=== PATIENT | female | born 1995 | race Caucasian/White ===

== ENCOUNTER 2020-12-17 14:29 | Outpatient (REF) | payer MEDICARE, MEDICAID, SELFPAY ==
[2020-12-17 16:08] LABS: Free T4 (Free Thyroxine) 0.71 ng/dL (0.71-1.85); Thyroid Stimulating Hormone 4.79 uIU/mL (0.32-4.0)
[2020-12-18 06:51] LABS: Triiodothyronine T3 Total 77 ng/dL (76-181)
== END 2020-12-17 14:30 | disposition home or self-care (01) ==
LOC: HO.LAB 14:29
PROVIDERS: PCP Student in an Organized Health Care Education/Training Program; Visit Provider Internal Medicine Endocrinology, Diabetes & Metabolism
DX: E05.90 Thyrotoxicosis, unspecified without thyrotoxic crisis or storm (principal)
CPT/HCPCS: 36415; 84439; 84443; 84480

== ENCOUNTER 2021-01-26 15:04 | Outpatient (REF) | payer MEDICARE, MEDICAID, SELFPAY ==
[2021-01-26 17:30] LABS: MANUAL DIFF FLAG NO
[2021-01-26 17:40] LABS: Basophils Absolute Auto 0.1 X10*3/uL (0.0-0.2); Basophils Percent Auto 1.1 % (0-2); Eosinophils Absolute Auto 0.1 X10*3/uL (0.0-0.4); Eosinophils Percent Auto 1.1 % (0-4); Hematocrit 38.4 % (37-47); Hemoglobin 13.2 g/dl (12.0-16.0); Imm Gran Abs Auto 0.02 X10*3/uL (0.00-0.03); Imm Gran Pct Auto 0.4 % (0.0-0.4); Lymphocytes Absolute Auto 1.6 X10*3/uL (1.2-4.9); Lymphocytes Percent Auto 29.5 % (20-40); Mean Corpuscular HGB Conc 34.4 g/dl (31.0-35.0); Mean Corpuscular Hemoglobin 34.5 pg (27.0-33.0); Mean Corpuscular Volume 100.3 fL (80-98); Mean Platelet Volume 10.1 fL (9.4-12.3); Monocytes Absolute Auto 0.2 X10*3/uL (0.1-1.2); Monocytes Percent Auto 4.3 % (2-11); Neutrophils Absolute Auto 3.4 X10*3/uL (2.0-8.3); Neutrophils Percent Auto 63.6 % (45-73); Platelet Count 236 X10*3/uL (160-400); Red Blood Count 3.83 X10*6/uL (4.20-5.50); Red Cell Distribution Width 12.3 % (11.0-16.0); White Blood Count 5.4 X10*3/uL (4.8-10.8)
[2021-01-26 18:05] LABS: Alanine Aminotransferase 15 U/L (0-31); Albumin Level 4.2 g/dL (3.5-5.0); Alkaline Phosphatase 57 U/L (39-117); Aspartate Amino Transferase 18 U/L (5-31); Bilirubin Direct 0.2 mg/dL (0.0-0.5); Bilirubin Total 0.4 mg/dL (0.0-1.0); Total Protein 7.1 g/dL (6.5-8.0)
[2021-01-26 18:26] LABS: Free T4 (Free Thyroxine) 0.88 ng/dL (0.71-1.85); Thyroid Stimulating Hormone 2.98 uIU/mL (0.32-4.0)
[2021-01-27 07:56] LABS: Triiodothyronine T3 Total 76 ng/dL (76-181)
[2021-01-29 21:01] LABS: Thyrotropin Receptor Antibody 8.85 IU/L (<=2.00)
[2021-01-31 15:02] LABS: Thyroid Stimulating Immunoglob 553 % baseline (<140)
== END 2021-01-26 15:05 | disposition home or self-care (01) ==
LOC: HO.LAB 15:04
PROVIDERS: PCP Student in an Organized Health Care Education/Training Program; Visit Provider Internal Medicine Endocrinology, Diabetes & Metabolism
DX: E05.00 Thyrotoxicosis with diffuse goiter without thyrotoxic crisis or storm (principal); E06.3 Autoimmune thyroiditis; Z79.899 Other long term (current) drug therapy
CPT/HCPCS: 36415; 80076; 83520; 84439; 84443; 84445; 84480; 85025; 99212

== ENCOUNTER 2021-05-06 14:36 | Outpatient (REF) | payer MEDICARE, MEDICAID, SELFPAY ==
[2021-05-06 16:37] LABS: Free T4 (Free Thyroxine) 0.87 ng/dL (0.71-1.85); Thyroid Stimulating Hormone 6.51 uIU/mL (0.32-4.0)
[2021-05-08 03:05] LABS: Triiodothyronine T3 Total 88 ng/dL (76-181)
== END 2021-05-06 14:37 | disposition home or self-care (01) ==
LOC: HO.LAB 14:36
PROVIDERS: PCP Student in an Organized Health Care Education/Training Program; Visit Provider Internal Medicine
DX: E05.00 Thyrotoxicosis with diffuse goiter without thyrotoxic crisis or storm (principal)
CPT/HCPCS: 36415; 84439; 84443; 84480; 99212

== ENCOUNTER 2021-05-17 14:34 | Outpatient (REF) | payer MEDICARE, MEDICAID, SELFPAY ==
--- NOTE | ~2021-05-17 | US_ITS ---
EXAMINATION: US THYROID CLINICAL INFORMATION: Thyrotoxicosis with diffuse goiter COMPARISON: None TECHNIQUE: Linear transducer grayscale and color Doppler examination with attention to the region of the thyroid. FINDINGS: SIZE: Measurements of the thyroid lobes and nodules are given in sagittal, anteroposterior and transverse dimensions respectively. Right Thyroid Lobe: 3.95 x 1.60 x 1.56 cm, volume 5.19 mL. Parenchyma: The gland echotexture is homogeneous. Thyroid vascularity is increased. Left Thyroid Lobe: 3.40 x 1.59 x 1.44 cm, volume 4.09 mL. Parenchyma: The gland echotexture is homogeneous. Thyroid vascularity is increased. Isthmus: 0.33 cm in maximum AP dimension. Estimated total number of nodules greater than or equal to 1 cm: 0. Pattern Finisher nodules are described as follows: NODES: No lymphadenopathy is seen in the tissue surrounding the thyroid gland. US/US thyroid IMPRESSION: Hypervascular normal-size thyroid gland. No nodule seen.
== END 2021-05-17 14:35 | disposition home or self-care (01) ==
LOC: HO.HMGCX 14:34
PROVIDERS: PCP Student in an Organized Health Care Education/Training Program; Visit Provider Internal Medicine
DX: E05.00 Thyrotoxicosis with diffuse goiter without thyrotoxic crisis or storm (principal)
CPT/HCPCS: 76536

== ENCOUNTER 2021-06-01 09:28 | Outpatient (REF) | payer MEDICARE, MEDICAID, SELFPAY ==
[2021-06-01 10:40] LABS: Thyroid Stimulating Hormone 7.13 uIU/mL (0.32-4.0)
[2021-06-03 03:32] LABS: Triiodothyronine T3 Total 104 ng/dL (76-181)
[2021-06-04 16:02] LABS: Thyroid Stimulating Immunoglob 380 % baseline (<140)
== END 2021-06-01 09:29 | disposition home or self-care (01) ==
LOC: HO.LAB 09:28
PROVIDERS: Absent Provider Internal Medicine; PCP Student in an Organized Health Care Education/Training Program; Visit Provider Nurse Practitioner Gerontology
DX: E05.00 Thyrotoxicosis with diffuse goiter without thyrotoxic crisis or storm (principal)
CPT/HCPCS: 36415; 84439; 84443; 84445; 84480

== ENCOUNTER 2021-06-07 16:17 | Outpatient (REF) | payer MEDICARE, MEDICAID, SELFPAY ==
[2021-06-07 16:54] LABS: Hematocrit 37.2 % (37-47); Hemoglobin 13.1 g/dl (12.0-16.0); Mean Corpuscular HGB Conc 35.2 g/dl (31.0-35.0); Mean Corpuscular Hemoglobin 34.7 pg (27.0-33.0); Mean Corpuscular Volume 98.7 fL (80-98); Mean Platelet Volume 10.1 fL (9.4-12.3); Platelet Count 222 X10*3/uL (160-400); Red Blood Count 3.77 X10*6/uL (4.20-5.50); Red Cell Distribution Width 12.2 % (11.0-16.0); White Blood Count 5.4 X10*3/uL (4.8-10.8)
[2021-06-07 18:05] LABS: Folate 15.2 ng/mL (> or = 4.0); Vitamin B12 388 pg/mL (200-900)
[2021-06-15 15:47] LABS: Transglutaminase Ab IgG <1.0 U/mL
== END 2021-06-07 16:18 | disposition home or self-care (01) ==
LOC: HO.LAB 16:17
PROVIDERS: Visit Provider Family Medicine
DX: D75.89 Other specified diseases of blood and blood-forming organs (principal); Q90.9 Down syndrome, unspecified
CPT/HCPCS: 36415; 82607; 82746; 83516; 85027

== ENCOUNTER 2021-07-16 08:59 | Outpatient (REF) | payer MEDICARE, MEDICAID, SELFPAY ==
[2021-07-16 10:56] LABS: Free T4 (Free Thyroxine) 1.04 ng/dL (0.71-1.85)
[2021-07-21 02:17] LABS: Thyroglobulin Antibodies <1 IU/mL (< or = 1); Thyroid Peroxidase Antibodies 235 IU/mL (<9)
[2021-07-24 18:21] LABS: Thyrotropin Receptor Antibody 6.94 IU/L (<=2.00)
[2021-07-27 15:47] LABS: Thyroid Stimulating Immunoglob 347 % baseline (<140)
== END 2021-07-16 09:00 | disposition home or self-care (01) ==
LOC: HO.LAB 08:59
PROVIDERS: PCP Student in an Organized Health Care Education/Training Program; Visit Provider Internal Medicine
DX: E03.9 Hypothyroidism, unspecified (principal)
CPT/HCPCS: 36415; 83520; 84439; 84443; 84445; 86376; 86800

== ENCOUNTER 2021-10-27 09:34 | Outpatient (REF) | payer MEDICARE, MEDICAID, SELFPAY ==
[2021-10-27 11:40] LABS: Free T4 (Free Thyroxine) 1.18 ng/dL (0.71-1.85); Thyroid Stimulating Hormone 1.37 uIU/mL (0.32-4.0)
[2021-10-28 08:02] LABS: Triiodothyronine T3 Total 101 ng/dL (76-181)
== END 2021-10-27 09:35 | disposition home or self-care (01) ==
LOC: HO.LAB 09:34
PROVIDERS: PCP Student in an Organized Health Care Education/Training Program; Visit Provider Internal Medicine
DX: E05.00 Thyrotoxicosis with diffuse goiter without thyrotoxic crisis or storm (principal)
CPT/HCPCS: 36415; 84439; 84443; 84480

== ENCOUNTER → 2021-11-08 14:47 | Outpatient (BNVA) | payer MEDICARE, MEDICAID, SELFPAY | PROVIDERS: PCP Student in an Organized Health Care Education/Training Program; Visit Provider Internal Medicine | DX: E03.9 Hypothyroidism, unspecified (principal) | CPT/HCPCS: 99212 ==

== ENCOUNTER 2021-12-20 09:12 | Outpatient (REF) | payer MEDICARE, MEDICAID, SELFPAY ==
[2021-12-20 09:48] LABS: Hematocrit 38.6 % (37.0-47.0); Hemoglobin 13.5 g/dl (12.0-16.0); Mean Corpuscular Hemoglobin 33.6 pg (27.0-33.0); Mean Platelet Volume 10.1 fL (9.4-12.3); Platelet Count 316 X10*3/uL (160-400); Red Blood Count 4.02 X10*6/uL (4.20-5.50); Red Cell Distribution Width 11.9 % (11.0-16.0); White Blood Count 7.9 X10*3/uL (4.8-10.8)
[2021-12-20 10:10] LABS: Alanine Aminotransferase 10 U/L (0-31); Albumin Level 3.9 g/dL (3.5-5.0); Alkaline Phosphatase 64 U/L (39-117); Aspartate Amino Transferase 18 U/L (5-31); Bilirubin Direct 0.3 mg/dL (0.0-0.5); Total Protein 7.3 g/dL (6.5-8.0)
[2021-12-20 10:33] LABS: Free T4 (Free Thyroxine) 1.14 ng/dL (0.71-1.85); Thyroid Stimulating Hormone 1.11 uIU/mL (0.32-4.0)
[2021-12-22 03:51] LABS: Triiodothyronine T3 Free 2.8 pg/mL (2.3-4.2)
== END 2021-12-20 09:13 | disposition home or self-care (01) ==
LOC: HO.LAB 09:12
PROVIDERS: PCP Student in an Organized Health Care Education/Training Program; Visit Provider Internal Medicine Endocrinology, Diabetes & Metabolism
DX: E05.90 Thyrotoxicosis, unspecified without thyrotoxic crisis or storm (principal)
CPT/HCPCS: 36415; 80076; 84439; 84443; 84481; 85027

== ENCOUNTER 2022-02-09 09:49 | Outpatient (REF) | payer MEDICARE, MEDICAID, SELFPAY ==
[2022-02-09 12:01] LABS: Free T4 (Free Thyroxine) 1.15 ng/dL (0.71-1.85); Thyroid Stimulating Hormone 1.99 uIU/mL (0.32-4.0)
== END 2022-02-09 09:50 | disposition home or self-care (01) ==
LOC: HO.LAB 09:49
PROVIDERS: PCP Student in an Organized Health Care Education/Training Program; Visit Provider Internal Medicine
DX: E03.9 Hypothyroidism, unspecified (principal)
CPT/HCPCS: 36415; 84439; 84443

== ENCOUNTER 2022-03-28 09:51 | Outpatient (REF) | payer MEDICARE, MEDICAID, SELFPAY ==
[2022-03-28 11:12] LABS: Thyroid Stimulating Hormone 1.79 uIU/mL (0.32-4.0)
[2022-03-29 23:32] LABS: Triiodothyronine T3 Total 110 ng/dL (76-181)
== END 2022-03-28 09:52 | disposition home or self-care (01) ==
LOC: HO.LAB 09:51
PROVIDERS: Nurse Practitioner Gerontology; PCP Student in an Organized Health Care Education/Training Program; Visit Provider Internal Medicine
DX: E03.9 Hypothyroidism, unspecified (principal); E05.90 Thyrotoxicosis, unspecified without thyrotoxic crisis or storm
CPT/HCPCS: 36415; 84439; 84443; 84480

== ENCOUNTER 2022-05-05 14:34 | Outpatient (REF) | payer MEDICARE, MEDICAID, SELFPAY ==
[2022-05-05 16:36] LABS: Free T4 (Free Thyroxine) 1.15 ng/dL (0.71-1.85); Thyroid Stimulating Hormone 1.62 uIU/mL (0.32-4.0)
== END 2022-05-05 14:35 | disposition home or self-care (01) ==
LOC: HO.LAB 14:34
PROVIDERS: PCP Student in an Organized Health Care Education/Training Program; Visit Provider Internal Medicine
DX: E03.9 Hypothyroidism, unspecified (principal)
CPT/HCPCS: 36415; 84439; 84443

== ENCOUNTER → 2022-05-11 13:47 | Outpatient (BNVA) | payer MEDICARE, MEDICAID, SELFPAY | PROVIDERS: PCP Student in an Organized Health Care Education/Training Program; Visit Provider Internal Medicine | DX: E03.9 Hypothyroidism, unspecified (principal); Z79.899 Other long term (current) drug therapy | CPT/HCPCS: 99212 ==

== ENCOUNTER 2022-11-10 09:56 | Outpatient (REF) | payer MEDICARE, MEDICAID, SELFPAY ==
[2022-11-10 11:30] LABS: Free T4 (Free Thyroxine) 0.98 ng/dL (0.71-1.85); Thyroid Stimulating Hormone 3.62 uIU/mL (0.32-4.0)
== END 2022-11-10 09:57 | disposition home or self-care (01) ==
LOC: HO.LAB 09:56
PROVIDERS: PCP Student in an Organized Health Care Education/Training Program; Visit Provider Internal Medicine
DX: E03.9 Hypothyroidism, unspecified (principal)
CPT/HCPCS: 36415; 84439; 84443

== ENCOUNTER → 2022-11-21 14:03 | Outpatient (BNVA) | payer MEDICARE, MEDICAID, SELFPAY | PROVIDERS: PCP Student in an Organized Health Care Education/Training Program; Visit Provider Internal Medicine | DX: E03.9 Hypothyroidism, unspecified (principal) | CPT/HCPCS: 99212 ==

== ENCOUNTER 2022-12-22 15:31 | Outpatient (REF) | payer MEDICARE, MEDICAID, SELFPAY ==
[2022-12-22 17:52] LABS: Alanine Aminotransferase 16 U/L (0-31); Albumin Level 4.4 g/dL (3.5-5.0); Alkaline Phosphatase 63 U/L (39-117); Anion Gap 14 (12-20); Aspartate Amino Transferase 21 U/L (5-31); Bilirubin Direct 0.2 mg/dL (0.0-0.5); Bilirubin Total 0.5 mg/dL (0.0-1.0); Blood Urea Nitrogen 18 mg/dL (9-16); Calcium 9.3 mg/dL (8.4-10.2); Carbon Dioxide 26 mmol/L (22-29); Chloride 105 mmol/L (96-108); Cholesterol 157 mg/dL; Estimated Glomerular Filt Rate > 60; Glucose Random 77 mg/dL (60-115); HDL Cholesterol 57 mg/dL; Iron 89 mcg/dL (30-160); LDL Cholesterol Calculated 87 mg/dl; Percent Iron Saturation 31 % (15-50); Potassium 4.7 mmol/L (3.3-5.1); Sodium 140 mmol/L (135-145); Total Iron Binding Capacity 286 mcg/dL (228-428); Total Protein 7.6 g/dL (6.5-8.0); Triglycerides 66 mg/dL; Unsaturated Iron Binding 197 ug/dL
[2022-12-22 18:14] LABS: Ferritin 42 ng/mL (10-122); Vitamin B12 388 pg/mL (200-900)
== END 2022-12-22 15:32 | disposition home or self-care (01) ==
LOC: HO.LAB 15:31
PROVIDERS: PCP Student in an Organized Health Care Education/Training Program; Visit Provider Student in an Organized Health Care Education/Training Program
DX: E53.8 Deficiency of other specified B group vitamins (principal); E05.90 Thyrotoxicosis, unspecified without thyrotoxic crisis or storm; D50.9 Iron deficiency anemia, unspecified; Q90.9 Down syndrome, unspecified
CPT/HCPCS: 36415; 80048; 80061; 80076; 82607; 82728; 83540; 84443

== ENCOUNTER 2023-02-20 16:31 | Outpatient (REF) | payer MEDICARE, MEDICAID, SELFPAY ==
[2023-02-20 17:55] LABS: Free T4 (Free Thyroxine) 1.09 ng/dL (0.71-1.85); Thyroid Stimulating Hormone 2.09 uIU/mL (0.32-4.0)
== END 2023-02-20 16:32 | disposition home or self-care (01) ==
LOC: HO.LAB 16:31
PROVIDERS: PCP Student in an Organized Health Care Education/Training Program; Visit Provider Internal Medicine
DX: E03.9 Hypothyroidism, unspecified (principal)
CPT/HCPCS: 36415; 84439; 84443

== ENCOUNTER 2023-04-04 09:28 | Outpatient (REF) | payer MEDICARE, MEDICAID, SELFPAY ==
[2023-04-04 11:40] LABS: Vitamin D 25-OH Total 42.5 ng/mL (>30)
== END 2023-04-04 09:29 | disposition home or self-care (01) ==
LOC: HO.LAB 09:28
PROVIDERS: PCP Student in an Organized Health Care Education/Training Program; Visit Provider Student in an Organized Health Care Education/Training Program
DX: E55.9 Vitamin D deficiency, unspecified (principal)
CPT/HCPCS: 36415; 82306

== ENCOUNTER 2023-05-30 15:07 | Outpatient (AMB) | payer MEDICARE, MEDICAID, SELFPAY ==
--- NOTE | 2023-05-30 15:09 | A.OFFVIS_ITS ---
Intake Vital Signs 05/30/23 15:14 Height 4 ft 4 in Weight 89 lb 11.65 oz BMI 23.3 BP 102/70 Blood Pressure Location Lt brachial Position Sitting Pulse 92 Pulse Source Pulse Oximeter Intake Visit Reasons: F/U Hypothyroidism/ Unable to reach Intake Note: Patient present today for Hypothyroidism office visit. Previously seen by Dr. Aguilera. 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 Allergies bacitracin Allergy (Unknown, Verified 05/30/23 15:16) Unknown penicillin V Allergy (Unknown, Verified 05/30/23 15:16) Unknown Penicillins [PENICILLINS] Allergy (Unknown, Verified 05/30/23 15:16) UNKNOWN Sulfa (Sulfonamide Antibiotics) [SULFA (SULFONAMIDE ANTIBIOTICS)] Allergy (Unknown, Verified 05/30/23 15:16) UNKNOWN sulfacetamide Allergy (Unknown, Verified 05/30/23 15:16) Unknown adhesive Allergy (Unknown, Uncoded 05/30/23 15:16) Unknown Clindamycin HCl Allergy (Unknown, Uncoded 05/30/23 15:16) Unknown Medication List - Last Reconciled 05/30/23 by Naseem Rosas MD betamethasone dipropionate 0.05% 1 appl topical BID fluocinolone and shower cap 0.01 % (Acworth-Smoothe/FS Scalp Oil) ea topical fluticasone propionate 50 mcg/actuation sprays intranasal ketoconazole 2% topical levothyroxine 25 mcg PO DAILY 30 days mupirocin 2% topical nystatin topical tacrolimus 0.1% topical HPI HPI Comments History of Present Illness Details 28 YO Female with a PMHx Lana-Grave's disease who is seen in F/U. Patient last saw Dr. Aguilera on 11/21/2022 History is provided by her photograph tinter today. She has autoimmune thyroid disease with TPO, TRAB and TSI antibodies positive. She was previously hypothyroid on levothyroxine replacement, but subsequently became hyperthyroid. Her levothyroxine was stopped, she remained hyperthyroid, so methimazole 2.5 mg PO daily was started. She then became hypothyroid again. Her methimazole was stopped and she was instead start on levothyroxine 25 mcg PO daily. She remains on this now, with TSH WNL. Thyroid US revealed a hypervascular gland that was WNL in terms of size. No nodules were appreciated. Labs: Laboratory Tests 11/10/22 10:14 TSH 3.62 Free T4 0.98 PFSH Medical History Graves disease Hyperthyroidism Hypothyroidism Surgical History Hx of tonsillectomy Family History Mother No problems noted. Maternal Grandmother Goiter Sister Orlando's disease Social History Housing: Other Housing Other:: Resides at [place] Do you presently have visiting nurse or other home services: Yes (School Nurse Donna [phone] Ext [phone]) Alcohol intake: never Patient Tobacco Use Status: Never used Tobacco Physical Exam Vital Signs: Last Vital Signs Pulse 92 05/30/23 15:14 BP 102/70 05/30/23 15:14 BMI result Body Mass Index 23.3 Const Other: Thyroid gland is normal size weighs about 15 g . There are no thyroid nodules palpated. 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 She appears to be clinically biochemically euthyroid on 25 mcg levothyroxine. Plan is to continue The current management Orders: Orders Free T4 (Free Thyroxine) 11 Months E03.9 - Hypothyroidism, unspecified Thyroid Stimulating Hormone 11 Months E03.9 - Hypothyroidism, unspecified Coding Level of Care Code Est Pt Level 3 (34483) Diagnoses Hypothyroidism E03.9
[2023-05-30 15:14] VITALS: BP 102/70; PULSE 92; BMI 23.3
== END 2023-05-30 15:51 | disposition home or self-care (01) ==
PROVIDERS: PCP Student in an Organized Health Care Education/Training Program; Visit Provider Internal Medicine Endocrinology, Diabetes & Metabolism
DX: E03.9 Hypothyroidism, unspecified (principal)
CPT/HCPCS: 99213

== ENCOUNTER → 2023-05-30 15:07 | Outpatient (BNVA) | payer MEDICARE, MEDICAID, SELFPAY | PROVIDERS: Visit Provider Internal Medicine Endocrinology, Diabetes & Metabolism | DX: E06.3 Autoimmune thyroiditis (principal); E03.8 Other specified hypothyroidism; Z79.899 Other long term (current) drug therapy | CPT/HCPCS: 99212 ==

== ENCOUNTER 2023-08-08 15:49 | Outpatient (REF) | payer MEDICARE, MEDICAID, SELFPAY ==
[2023-08-08 18:09] LABS: MANUAL DIFF FLAG NO
[2023-08-08 18:18] LABS: Basophils Absolute Auto 0.1 X10*3/uL (0.0-0.2); Basophils Percent Auto 1.2 % (0-2); Eosinophils Absolute Auto 0.1 X10*3/uL (0.0-0.4); Eosinophils Percent Auto 0.7 % (0-4); Hematocrit 37.3 % (37.0-47.0); Hemoglobin 12.9 g/dl (12.0-16.0); Imm Gran Abs Auto 0.02 X10*3/uL (0.00-0.03); Imm Gran Pct Auto 0.3 % (0.0-0.4); Lymphocytes Absolute Auto 1.6 X10*3/uL (1.2-4.9); Lymphocytes Percent Auto 21.1 % (20-40); Mean Corpuscular HGB Conc 34.6 g/dl (31.0-35.0); Mean Corpuscular Volume 98.4 fL (80.0-98.0); Mean Platelet Volume 10.8 fL (9.4-12.3); Monocytes Absolute Auto 0.3 X10*3/uL (0.1-1.2); Neutrophils Absolute Auto 5.6 x10*3/uL (2.0-8.3); Neutrophils Percent Auto 72.7 % (45-73); Platelet Count 220 X10*3/uL (160-400); Red Blood Count 3.79 X10*6/uL (4.20-5.50); Red Cell Distribution Width 12.5 % (11.0-16.0); White Blood Count 7.7 X10*3/uL (4.8-10.8)
[2023-08-08 18:42] LABS: Alanine Aminotransferase 11 U/L (0-31); Albumin Level 4.1 g/dL (3.5-5.0); Alkaline Phosphatase 51 U/L (39-117); Anion Gap 14 (12-20); Aspartate Amino Transferase 20 U/L (5-31); Bilirubin Direct 0.2 mg/dL (0.0-0.5); Bilirubin Total 0.4 mg/dL (0.0-1.0); Blood Urea Nitrogen 16 mg/dL (9-16); Calcium 9.3 mg/dL (8.4-10.2); Carbon Dioxide 23 mmol/L (22-29); Chloride 106 mmol/L (96-108); Estimated Glomerular Filt Rate > 60; Glucose Random 72 mg/dL (60-115); Potassium 4.1 mmol/L (3.3-5.1); Sodium 139 mmol/L (135-145); Total Protein 7.4 g/dL (6.5-8.0)
[2023-08-08 18:56] LABS: TSH reflex Free T4 2.82 uIU/mL (0.32-4.0)
[2023-08-09 14:58] LABS: Gliadin Deamidated IgA Ab <1.0 U/mL; Gliadin Deamidated IgG Ab <1.0 U/mL; Transglutaminase Ab IgG <1.0 U/mL; Transglutaminase IgA <1.0 U/mL
[2023-08-09 17:28] LABS: Immunoglobulin A 335 mg/dL (47-310)
[2023-08-11 12:19] LABS: Endomysial IgA Antibody Negative (Negative)
== END 2023-08-08 15:50 | disposition home or self-care (01) ==
LOC: HO.CHCLDS 15:49
PROVIDERS: Visit Provider Internal Medicine
DX: Z00.00 Encounter for general adult medical examination without abnormal findings (principal); Q90.9 Down syndrome, unspecified; E03.8 Other specified hypothyroidism
CPT/HCPCS: 36415; 80048; 80076; 82784; 84443; 85025; 86231; 86258; 86364

== ENCOUNTER 2024-05-29 14:43 | Outpatient (REF) | payer MEDICARE, MEDICAID, SELFPAY ==
[2024-05-29 16:44] LABS: Thyroid Stimulating Hormone 3.18 uIU/mL (0.32-4.0)
== END 2024-05-29 14:44 | disposition home or self-care (01) ==
LOC: HO.LAB 14:43
PROVIDERS: PCP Student in an Organized Health Care Education/Training Program; Visit Provider Internal Medicine Endocrinology, Diabetes & Metabolism
DX: E03.9 Hypothyroidism, unspecified (principal)
CPT/HCPCS: 36415; 84439; 84443

== ENCOUNTER 2024-06-03 15:20 | Outpatient (AMB) | payer MEDICARE, MEDICAID, SELFPAY ==
--- NOTE | 2024-06-03 15:22 | MHC.OFFVIS ---
Vital Signs 06/03/24 15:24 Height 4 ft 4 in Weight 89 lb 4.595 oz BMI 23.2 BP 90/60 Blood Pressure Location Rt brachial Position Sitting Pulse 61 Pulse Source Pulse Oximeter Intake Visit Reasons: f/u hypothyroidism Intake Note: Patient present today for hypothyroidism follow up visit. Vp Publisher Development Required: No Accompanied by: Mother Allergies bacitracin Allergy (Unknown, Verified 06/03/24 15:28) Unknown penicillin V Allergy (Unknown, Verified 06/03/24 15:28) Unknown Penicillins [PENICILLINS] Allergy (Unknown, Verified 06/03/24 15:28) UNKNOWN Sulfa (Sulfonamide Antibiotics) [SULFA (SULFONAMIDE ANTIBIOTICS)] Allergy (Unknown, Verified 06/03/24 15:) UNKNOWN sulfacetamide Allergy (Unknown, Verified 06/03/24:) Unknown adhesive Allergy (Unknown, Uncoded 06/03/24 15:) Unknown Clindamycin HCl Allergy (Unknown, Uncoded 06/03/24 15:) Unknown HPI Comments Details: 29 YO Female with a PMHx Lana-Grave's disease who is seen in F/U. History is provided by her campground caretaker today. She has autoimmune thyroid disease with TPO, TRAB and TSI antibodies positive. She was previously hypothyroid on levothyroxine replacement, but subsequently became hyperthyroid. Her levothyroxine was stopped, she remained hyperthyroid, so methimazole 2.5 mg PO daily was started. She then became hypothyroid again. Her methimazole was stopped and she was instead start on levothyroxine 25 mcg PO daily. She remains on this now, with TSH WNL. Thyroid US revealed a hypervascular gland that was WNL in terms of size. No nodules were appreciated. Labs: Laboratory Tests 11/10/22 10:14 TSH 3.62 Free T4 0.98 [facility] Medical History Graves disease Hyperthyroidism Hypothyroidism Surgical History Hx of tonsillectomy Family History Mother No problems noted. Maternal Grandmother Goiter Sister Orlando's disease Social History Housing: Other Housing Other:: Resides at [facility] [employer] Do you presently have visiting nurse or other home services: Yes (School Nurse Donna [phone] Ext [phone]) Alcohol intake: never Patient Tobacco Use Status: Never used Tobacco Physical Exam Const Other: Thyroid gland is normal size weighs about 15 g . There are no thyroid nodules palpated. 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 She appears to be clinically and biochemically euthyroid on 25 mcg levothyroxine. Plan is to continue The current management. At this point, patient returned to the care of her primary care provider returned back to endocrinology as needed Coding Level of Care Code Est Pt Level 3 (34486) Diagnoses Hypothyroidism E03.9
[2024-06-03 15:24] VITALS: BP 90/60; PULSE 61; BMI 23.2
== END 2024-06-03 15:45 | disposition home or self-care (01) ==
PROVIDERS: PCP Student in an Organized Health Care Education/Training Program; Visit Provider Internal Medicine Endocrinology, Diabetes & Metabolism
DX: E03.9 Hypothyroidism, unspecified (principal)
CPT/HCPCS: 99213

== ENCOUNTER → 2024-06-03 15:20 | Outpatient (BNVA) | payer MEDICARE, MEDICAID, SELFPAY | PROVIDERS: PCP Student in an Organized Health Care Education/Training Program; Visit Provider Internal Medicine Endocrinology, Diabetes & Metabolism | DX: E03.9 Hypothyroidism, unspecified (principal) | CPT/HCPCS: 99212 ==

== ENCOUNTER 2024-08-08 11:01 | Outpatient (REF) | payer MEDICARE, MEDICAID, SELFPAY ==
[2024-08-08 14:59] LABS: TSH reflex Free T4 3.15 uIU/mL (0.32-4.0); Vitamin D 25-OH Total 74.8 ng/mL (>30)
[2024-08-09 14:24] LABS: Immunoglobulin A 349 mg/dL (47-310); Transglutaminase IgA <1.0 U/mL
== END 2024-08-08 11:02 | disposition home or self-care (01) ==
LOC: HO.CHCLDS 11:01
PROVIDERS: Visit Provider Student in an Organized Health Care Education/Training Program
DX: E03.9 Hypothyroidism, unspecified (principal); K90.0 Celiac disease; E55.9 Vitamin D deficiency, unspecified
CPT/HCPCS: 36415; 82306; 82784; 84443; 86364

== ENCOUNTER 2024-09-25 22:12 | Emergency (ER) | payer MEDICARE, MEDICAID, SELFPAY ==
--- NOTE | 2024-09-25 | ECG_ITS ---
Test Reason : SYNCOPE Blood Pressure : */* mmHG Vent. Rate : 110 BPM Atrial Rate : 110 BPM P-R Int : 126 ms QRS Dur : 72 ms QT Int : 310 ms P-R-T Axes : 41 48 28 degrees QTcB Int : 419 ms Sinus tachycardia Possible Left atrial enlargement Borderline ECG When compared with ECG of 24-Jun-2019 19:08, No significant changes seen Referred By: Generic ED Physician Electronically Signed By: JONATHAN BENSON
--- NOTE | ~2024-09-25 | CT_ITS ---
CLINICAL HISTORY: abd pain and fever in person with Down syndrome CT abdomen and pelvis with contrast Comparison: None Findings: Motion artifact present. No consolidation or effusion. The gallbladder and solid organs are within normal limits given the motion limitations. No hydronephrosis. There is jboc-[id number] dilation of the distal esophagus with a small amount of intraluminal fluid. The stomach is moderately distended with gas and fluid. Evaluation of the bowel is mildly degraded by motion artifact. Multiple fluid-filled loops of dilated small bowel are identified throughout the abdomen, measuring up to 4.1 cm in diameter at the mid left hemiabdomen. 2.6 cm low-attenuation structure identified at the right adnexal region, suggesting a right adnexal cyst. Small calcifications are identified over the endocervical region. No bladder wall thickening. Nondilated tubular structure partially visualized along the medial margin of the cecum on axial image number 43 of series 3, possibly consistent with a nondilated appendix. No acute fracture visualized. IMPRESSION: Mildly motion limited examination with multiple fluid-filled loops of dilated small bowel throughout the abdomen, measuring up to 4.1 cm in maximum diameter at the mid left hemiabdomen. These findings may be seen in the setting of a small bowel obstruction or bowel ileus. [id number]-[id number] distention of the visualized portion of the distal esophagus with a small amount of intraluminal fluid. This may be related to the small bowel obstruction or ileus, gastroesophageal reflux, or esophageal dysmotility. 2.6 cm low-attenuation right adnexal cyst. This document has been electronically signed by: Prince Wright MD on 09/26/2024 03:37:16
--- NOTE | ~2024-09-25 | CT_ITS ---
CLINICAL HISTORY: fall, head injury CT head without contrast Comparison: None Findings: No intracranial mass, midline shift, hydrocephalus, or acute hemorrhage. [id number]-[id number] mucosal thickening versus fluid identified dependently at the left sphenoid sinus with mild mucosal thickening versus fluid dependently at the right sphenoid sinus.. Mild mucosal thickening partially visualized at the right maxillary sinus with minimal mucosal thickening partially visualized at the left maxillary sinus. The bilateral mastoid air cells appear clear. The right mastoid air cells are under pneumatized. No acute skull fracture. Impression: 1. No acute intracranial abnormality. No acute intracranial hemorrhage. This document has been electronically signed by: Prince Wright MD on 09/26/2024 00:42:26
--- NOTE | ~2024-09-25 | XR_ITS ---
CLINICAL HISTORY: fever 1 view chest x-ray. Comparison: CR/SR - CHEST 2 VIEWS - 06/24/19 16:32 EDT Findings: No consolidation, pneumothorax, or effusion. Mild gaseous distention of the proximal esophageal lumen present. This was also visualized on the prior exam. Heart size normal. Old, displaced right clavicle fracture redemonstrated. This was also present on the prior exam. Impression: 1. No radiographic evidence for an acute cardiopulmonary process. No focal pulmonary consolidation. 2. Displaced right clavicle fracture. This document has been electronically signed by: Prince Wright MD on 09/26/2024 02:26:24
[2024-09-25 22:19] VITALS: BP 118/74; PULSE 105; RESP 20; TEMP 37.4; O2SAT 98; BMI 23.2
--- NOTE | 2024-09-25 22:30 | PC.NURSE ---
pt brought in by parents, a&ox4, respirations even and unlabored. pt father at bedside reports pt had syncopal episode at school, reports head strike, denies thinners. upon walking into [facility], pt had another syncopal episode, in which her father caught her and she did not fall. pt family reports pt has people sick at school. pt reporting epigastric pain states it is a little . denies n/v/d and cp. 22G placed in left hand.
[2024-09-25 22:44] LABS: Basophils Percent Auto 0.4 % (0-2); Eosinophils Percent Auto 0.1 % (0-4); Hematocrit 35.9 % (37.0-47.0); Hemoglobin 13.2 g/dl (12.0-16.0); Imm Gran Abs Auto 0.03 X10*3/uL (0.00-0.03); Imm Gran Pct Auto 0.3 % (0.0-0.4); Lymphocytes Absolute Auto 0.2 X10*3/uL (1.2-4.9); MANUAL DIFF FLAG SCAN; Mean Corpuscular HGB Conc 36.8 g/dl (31.0-35.0); Mean Corpuscular Hemoglobin 34.9 pg (27.0-33.0); Mean Platelet Volume 10.1 fL (9.4-12.3); Monocytes Absolute Auto 0.4 X10*3/uL (0.1-1.2); Monocytes Percent Auto 3.7 % (2-11); Neutrophils Absolute Auto 9.9 x10*3/uL (2.0-8.3); Neutrophils Percent Auto 93.5 % (45-73); Platelet Count 197 X10*3/uL (160-400); Red Blood Count 3.78 X10*6/uL (4.20-5.50); Red Cell Distribution Width 12.5 % (11.0-16.0); SCAN SMEAR FLAG 1; White Blood Count 10.6 X10*3/uL (4.8-10.8)
--- NOTE | 2024-09-25 23:00 | ED_ITS ---
HPI - General Adult General Chief complaint: Syncope Stated complaint: fainted, fell and hit head, fever Time Seen by Provider: 09/25/24 22:48 History of Present Illness ED Provider: Oliver PIERRE narrative: The patient is a 29-year-old female with Down syndrome. She lives at a residential school. Apparently she had a syncopal episode today in which she hit the back of her head. She has had syncopal episodes in the past. After the syncopal episode she was noted to have a temperature of 101.4 degrees. Her family was called and they brought her to the hospital. In the waiting room of the emergency room the patient had another syncopal episode although she did not fall as she was caught by her father who was with her. The patient reported some abdominal pain. There is no report of nausea, vomiting, or diarrhea. Apparently many other people at the the patient's residential school have had vomiting and diarrhea today. The patient has not had any vomiting or diarrhea. Related Data Home Medications ?Medication ?Instructions ?Recorded ?Confirmed betamethasone dipropionate 0.05 % 1 appl topical BID 01/26/21 11/21/22 topical ointment fluticasone propionate 50 spray intranasal 01/26/21 11/21/22 mcg/actuation nasal spray,suspension ketoconazole 2 % shampoo topical 01/26/21 11/21/22 mupirocin 2 % topical ointment topical 01/26/21 11/21/22 nystatin 100,000 unit/gram topical topical 01/26/21 11/21/22 powder tacrolimus 0.1 % topical ointment topical 01/26/21 11/21/22 fluocinolone 0.01 % scalp oil and ea topical 11/21/22 11/21/22 shower cap (Anton Ruiz-Smoothe/FS Scalp Oil) Previous Rx's ?Medication ?Instructions ?Recorded levothyroxine 25 mcg tablet 25 mcg PO DAILY #30 tabs 06/20/24 Allergies Allergy/AdvReac Type Severity Reaction Status Date / Time bacitracin Allergy Unknown Unknown Verified 09/25/24 22:22 penicillin V Allergy Unknown Unknown Verified 09/25/24 22:22 Penicillins [PENICILLINS] Allergy Unknown UNKNOWN Verified 09/25/24 22:22 Sulfa (Sulfonamide Allergy Unknown UNKNOWN Verified 09/25/24 22:22 Antibiotics) [SULFA (SULFONAMIDE ANTIBIOTICS)] sulfacetamide Allergy Unknown Unknown Verified 09/25/24 22:22 adhesive Allergy Unknown Unknown Uncoded 09/25/24 22:22 Clindamycin HCl Allergy Unknown Unknown Uncoded 09/25/24 22:22 Review of Systems 2 Review of Systems: Yes all other systems are reviewed and are negative [facility] Past Medical History Medical History Graves disease Hyperthyroidism Hypothyroidism Surgical History Hx of tonsillectomy Family History Family History Mother No problems noted. Maternal Grandmother Goiter Sister Orlando's disease Social History Social History Housing: Other Housing Other:: Resides at [facility] Do you presently have visiting nurse or other home services: Yes (School Nurse Donna [phone] Ext [phone]) Alcohol intake: never Patient Tobacco Use Status: Never used Tobacco Physical Exam ED Vital Signs: Vital Signs - 24 hr 09/25/24 22:19 Temperature 99.4 F Pulse Rate 105 H Respiratory Rate 20 Blood Pressure 118/74 Pulse Oximetry 98 Oxygen Delivery Method Room Air BMI result Body Mass Index 23.2 Const Other: The patient is a 29-year-old female with Down syndrome. She is awake and alert. She seems to have a subdued demeanor but does not seem obviously acutely ill. She does not seem in pain or respiratory distress. HENMT Other: the face is symmetrical. Mucous membranes not obviously dry.. Eyes Other: Pupils are round equal, conjunctivae clear Neck Other: no posterior midline C-spine tenderness. No apparent discomfort with range of motion of the neck. I felt the C-spine was clinically clear. Neck: Yes full ROM and Yes no lymphadenopathy Resp Effort & Inspection: normal respiratory effort Auscultation: clear to auscultation bilaterally Cardio Rate: tachycardic Rhythm: regular rhythm Heart sounds: S1 normal heart sound present and S2 normal heart sound present GI Other: the abdomen seemed mildly full but seems soft. As far as I could tell there was no definite focal tenderness. General: Yes no CVA tenderness Back/Spine/Pelvis Back: no CVA tenderness Skin Other: Skin is pale and dry Neuro Other: The patient is awake and alert. She has a subdued demeanor. I believe she is at her neurological baseline. Her speech is clear but her speech content is somewhat limited. She would answer some questions with a yes or no answers but she answered a lot of questions with probably. no obvious cranial nerve deficit. She moves her extremities normally. Gait is normal. Extrem Other: No peripheral edema. No calf swelling or tenderness. No asymmetry. Medications Administered Discontinued Medications Generic Name Dose Route Start Last Admin Trade Name Say PRN Reason Stop Dose Admin Acetaminophen 600 mg 09/26/24 04:48 09/26/24 04:59 Acetaminophen Oral Liquid 650 Mg/20.3 Ml Solution PO 09/26/24 04:49 600 mg ONCE ONE Administration Sodium Chloride 1,000 mls @ 999 mls/hr 09/25/24 23:15 09/26/24 00:35 Ns IV 09/26/24 00:15 Infused .Q1H1M MAXIMO Infusion Iohexol 70 ml 09/26/24 02:16 09/26/24 02:16 Iohexol 350 Mg/Ml 100 Ml Infus..Btl IV 09/26/24 02:17 70 ml ONCE ONE Administration Ondansetron HCl 4 mg 09/26/24 01:52 09/26/24 01:56 Ondansetron Hcl 4 Mg/2 Ml Vial IVPUSH 09/26/24 01:53 4 mg ONCE ONE Administration Medical Decision Making Medical Decision Making [facility] Narrative: The patient is a 29-year-old patient with down syndrome who had a syncopal episode at school today in which she hit her head. She was then found to have a fever. She lives in a residential program. Apparently there are multiple people at the residential program with what sounds like a gastrointestinal illness. The patient has not exhibited any vomiting or diarrhea yet. The patient's parents were at the bedside. They say the patient has a history of previous episodes of syncope. The patient's evaluation is complicated by her cognitive impairment. It was not clear to what extent she was a reliable radiologist physician of symptoms. For example when asked a yes or no question about any particular symptoms she would often simply say probably. With regard to the patient's workup she had a negative head CT. The CT was done because she struck her head when she had a syncopal episode. With regard to her fever workup she has a white count of 10.6 with 93% neutrophils. She had a mild elevation of her C-reactive protein. Chest x-ray showed no pneumonia. Urinalysis was not significantly suggestive of a UTI. viral testing for the flu, COVID, and RSV was negative. Although she was not complaining of ongoing abdominal pain in the emergency room it was unclear whether she was a reliable radiologist physician of her symptoms. Apparently she had complained of abdominal pain earlier. I therefore felt, given the lack of a clear explanation for her fever I also obtained a CT scan of the abdomen and pelvis. This was read as showing a possible bowel obstruction versus ileus. My impression is that she does not have a bowel obstruction. I suspect that she might have some kind of a viral illness causing some degree of an ileus. Perhaps she will have significant diarrhea in the near future. The patient was given 1 L of IV normal saline. She was also given ondansetron and acetaminophen. She was observed. She ate some food. Overall I felt that she seemed fairly stable. Her parents are comfortable taking her home. She will not be returning to her usual residential program. She will stay with her parents for the weekend. They should return if worse. Lab Data 09/25/24 22:38 09/25/24 23:24 Labs: Lab Results 09/25/24 09/25/24 09/25/24 Range/Units 22:38 23:24 23:39 WBC 10.6 (4.8-10.8) X10*3/uL RBC 3.78 L (4.20-5.50) X10*6/uL Hgb 13.2 (12.0-16.0) g/dl Hct 35.9 L (37.0-47.0) % MCV 95.0 (80.0-98.0) fL MCH 34.9 H (27.0-33.0) pg MCHC 36.8 H (31.0-35.0) g/dl RDW 12.5 (11.0-16.0) % Plt Count 197 (160-400) X10*3/uL MPV 10.1 (9.4-12.3) fL Immature Gran % (Auto) 0.3 (0.0-0.4) % Neut % (Auto) 93.5 H (45-73) % Lymph % (Auto) 2.0 L (20-40) % [place] % (Auto) 3.7 (2-11) % Eos % (Auto) 0.1 (0-4) % Baso % (Auto) 0.4 (0-2) % Lymph # (Auto) 0.2 L (1.2-4.9) X10*3/uL [place] # (Auto) 0.4 (0.1-1.2) X10*3/uL Eos # (Auto) 0.0 (0.0-0.4) X10*3/uL Baso # (Auto) 0.0 (0.0-0.2) X10*3/uL Abs Immat Gran (auto) 0.03 (0.00-0.03) X10*3/uL Absolute Neuts (auto) 9.9 H (2.0-8.3) x10*3/uL Absolute Nucleated RBC 0.000 (0.0-0.012) X10*3/uL Nucleated RBC % (auto) 0.0 (0.0-0.2) /100WBC Smear Tech's Comments VERIFIED Hold Purple Top SEE NOTE Sodium 134 L (135-145) mmol/L Potassium 4.1 (3.3-5.1) mmol/L Chloride 104 (96-108) mmol/L Carbon Dioxide 22 (22-29) mmol/L Anion Gap 12 (12-20) BUN 17 H (9-16) mg/dL Creatinine 0.78 (0.5-1.4) mg/dL Estim Creat Clear Calc 53.6 Estimated GFR > 60 Random Glucose 122 H (60-115) mg/dL Calcium 8.1 L D (8.4-10.2) mg/dL Total Bilirubin 0.7 (0.0-1.0) mg/dL AST 24 (5-31) U/L ALT 14 (0-31) U/L Alkaline Phosphatase 49 (39-117) U/L Troponin I High Sens < 2.7 (<3.5-17.0) ng/L C-Reactive Protein 2.54 H (< or = 0.50) mg/dL Total Protein 6.7 (6.5-8.0) g/dL Albumin 3.6 (3.5-5.0) g/dL Lipase 9 (8-78) U/L Urine Color Yellow Urine Appearance Clear Urine pH 7.5 (5.0-9.0) Ur Specific [place] 1.025 (1.005-1.025) Urine Protein Negative (Neg-Trace) mg/dL Urine Glucose (UA) Negative (Negative) mg/dL Urine Ketones 40 (Negative) mg/dL Urine Blood Negative (Negative) Urine Nitrite Negative (Negative) Ur Leukocyte Esterase Trace H (Negative) Urine RBC 0-2 (0-2) /HPF Urine WBC 0-5 (0-5) /HPF Ur Squamous Epith Cells 3-5 (0-2) /HPF Urine Bacteria None Seen (None Seen) Hyaline Casts 0-2 (0-2) /LPF Influenza Type A (PCR) NEGATIVE (Negative) Influenza Type B (PCR) NEGATIVE (Negative) RSV RNA Qual (PCR) NEGATIVE (Negative) SARS-CoV-2 RNA (RT-PCR) NEGATIVE (Negative) Discharge Plan Discharge Clinical Impression: Syncope, Fever Patient Disposition: Home, Self-Care Additional Instructions: I think that she is probably coming down with a stomach bug. I think her CT scan suggest that she might soon developed significant diarrhea. I suspect that this is probably some kind of a viral illness causing her fever and other symptoms and this may have predispose her to fainting. Please encourage fluids with things like Gatorade or other fluids that have electrolytes. You may use acetaminophen (Tylenol) as needed for any fevers. Please stay in touch with the regular doctor for any additional advice over the phone as needed. Return to the emergency room if significantly worse. Prescriptions: No Action levothyroxine 25 mcg tablet 25 mcg PO DAILY Qty: 30 1RF tacrolimus 0.1 % ointment topical betamethasone dipropionate 0.05 % ointment 1 appl topical BID nystatin 100,000 unit/gram powder topical mupirocin 2 % ointment topical ketoconazole 2 % shampoo topical fluticasone propionate 50 mcg/actuation spray,suspension intranasal fluocinolone and shower cap [Anton Ruiz-Smoothe/FS Scalp Oil] 0.01 % oil topical Referrals: Therese Godoy MD [Primary Care Provider] - Interventions: ED Discharge Assessment Last Done: 09/26/24 05:18 Discharge Date/Time: 09/26/24 05:20 Print Language: Serbian
[2024-09-25] MEDS: 0.9 % Sodium Chloride 1,000 ML 999 ML IV (23:17)
[2024-09-25 23:20] LABS: Influenza A PCR NEGATIVE (Negative); Influenza B PCR NEGATIVE (Negative); Resp Syncy Virus RNA Qual PCR NEGATIVE (Negative); SARS COV2 PCR INHOUSE NEGATIVE (Negative); SLIDE REVIEW VERIFIED
[2024-09-25 23:46] LABS: Appearance Urine Clear; Color Urine Yellow; Glucose Urine UA Negative (Negative); Leukocyte Esterase Urine Trace (Negative); Nitrite Urine Negative (Negative); PH 7.5 (5.0-9.0); Specific Gravity - Urine 1.025 (1.005-1.025); UMIC TRIGGER UACC YES; Urine Blood Negative (Negative); Urine Ketones 40 mg/dL (Negative); Urine Protein Negative (Neg-Trace)
[2024-09-25 23:51] LABS: Bacteria Urine None Seen (None Seen); Hyaline Casts Urine 0-2 /LPF (0-2); RBC Urine 0-2 /HPF (0-2); WBC Urine 0-5 /HPF (0-5)
[2024-09-25 23:53] LABS: Troponin-I High Sensitivity < 2.7 ng/L (<3.5-17.0)
--- NOTE | 2024-09-25 23:53 | PC.NURSE ---
pt ambulatory with steady gait to bathroom, urine sample obtained
[2024-09-26 00:08] VITALS: PULSE 85; O2SAT 98
[2024-09-26 00:18] LABS: Alanine Aminotransferase 14 U/L (0-31); Albumin Level 3.6 g/dL (3.5-5.0); Alkaline Phosphatase 49 U/L (39-117); Aspartate Amino Transferase 24 U/L (5-31); Bilirubin Total 0.7 mg/dL (0.0-1.0); Blood Urea Nitrogen 17 mg/dL (9-16); C Reactive Protein 2.54 mg/dL (< or = 0.50); Calcium 8.1 mg/dL (8.4-10.2); Carbon Dioxide 22 mmol/L (22-29); Creatinine Clr Calc Pharmacy 53.6; Estimated Glomerular Filt Rate > 60; Glucose Random 122 mg/dL (60-115); Lipase 9 U/L (8-78); Total Protein 6.7 g/dL (6.5-8.0)
[2024-09-26 00:24] LABS: Chloride 104 mmol/L (96-108); Potassium 4.1 mmol/L (3.3-5.1); Sodium 134 mmol/L (135-145)
[2024-09-26 00:40] LABS: Anion Gap 12 (12-20)
[2024-09-26] MEDS: ondansetron HCL 4 MG/2 ML VIAL IVPUSH (01:56)
--- NOTE | 2024-09-26 01:57 | PC.NURSE ---
pt reporting some nausea at this time, emesis bag provided and pt medicated per mar.
[2024-09-26] MEDS: iohexoL 350 MG/ML 100 ML INFUS..BTL 70 ML IV (02:16)
[2024-09-26 04:47] VITALS: BP 104/63; PULSE 118; RESP 24; TEMP 38.2; O2SAT 98
[2024-09-26] MEDS: Acetaminophen Oral Liquid 650 MG/20.3 ML SOLUTION 600 MG PO (04:59)
[2024-09-26 05:18] VITALS: BP 104/63; PULSE 118; RESP 24; TEMP 38.2; O2SAT 98
--- NOTE | 2024-09-26 05:18 | PC.NURSE ---
pt medicated per mar for fever, tolerated well.
== END 2024-09-26 05:20 | disposition home or self-care (01) ==
PROVIDERS: Emergency Provider Emergency Medicine; PCP Student in an Organized Health Care Education/Training Program
DX: R55 Syncope and collapse (principal); R50.9 Fever, unspecified; R11.2 Nausea with vomiting, unspecified; R00.0 Tachycardia, unspecified; R51.9 Headache, unspecified; R10.2 Pelvic and perineal pain; Z79.899 Other long term (current) drug therapy; Z03.818 Encounter for observation for suspected exposure to other biological agents ruled out
CPT/HCPCS: 0241U; 70450; 71045; 74177; 80053; 81001; 83690; 84484; 85025; 86140; 93005; 96360; 96361; 96374; 96375; 99284; 99285; J2405; Q9967

== ENCOUNTER → 2024-09-25 22:32 | Outpatient (BNV) | payer MEDICARE, MEDICAID, SELFPAY | PROVIDERS: Emergency Provider Emergency Medicine; PCP Student in an Organized Health Care Education/Training Program; Visit Provider Internal Medicine | DX: R00.0 Tachycardia, unspecified (principal) | CPT/HCPCS: 93010 ==

== ENCOUNTER → 2024-09-25 23:03 | Outpatient (BNV) | payer MEDICARE, MEDICAID, SELFPAY | PROVIDERS: Emergency Provider Emergency Medicine; PCP Student in an Organized Health Care Education/Training Program; Visit Provider Radiology Diagnostic Radiology | DX: S09.90XA Unspecified injury of head, initial encounter (principal); W19.XXXA Unspecified fall, initial encounter | CPT/HCPCS: 70450 ==

== ENCOUNTER → 2024-09-26 00:46 | Outpatient (BNV) | payer MEDICARE, MEDICAID, SELFPAY | PROVIDERS: Emergency Provider Emergency Medicine; PCP Student in an Organized Health Care Education/Training Program; Visit Provider Radiology Diagnostic Radiology | DX: R10.9 Unspecified abdominal pain (principal); R50.9 Fever, unspecified; Q90.9 Down syndrome, unspecified | CPT/HCPCS: 71045; 74177 ==

== ENCOUNTER → 2025-01-31 14:57 | Outpatient (REF) | payer MEDICARE, MEDICAID, SELFPAY ==
--- OUTSIDE RECORDS SUMMARY | 2025-01-31 14:59 | XMS_ITS | Encounter Summary ---
Author Organization [employer] Address [address] [facility] 7t [place] [address] Care Team Providers Care Baggage Porter Name Role Phone Therese Godoy MD Primary Care Provider [phone] Reason for Visit * Reason Onset Date Comments Referral 09/14/2023 Encounter Details Date Type Department Care Team ([facility] st Contact Info) Description 09/14/2023 Telephone [facility] CH[facility] MED & PEDS [address] [place], [place] [phone] Therese Godoy MD [address] [place] [address] Referral Social History Tobacco Use Types Packs/Day Years Used Date Smoking Tobacco: Never Smokeless Tobacco: Never Housing Stability Answer Date Recorded What is your housing situation today? I have maritza le 06/22/[address] you li ve. Do you have problems with any of the following? None of the above 06/22/2023 Food Insecurity Answer Date Recorded Within the past 12 months, y ou worried that your food would run out before you got money to buy more: Never True 06/22/2023 Within the past 12 months,th e food you bought just didn't last and you didn't have enough money to get more: Never True Transportation Answer Date Recorded In the past 12 months, has l ack of transportation kept you from medical appts, meetings, work or from getting things needed for daily living? No 06/22/2023 Utilities Answer Date Recorded In the past 12 months, has t he electric, gas, oil or water company threatened to shut off services in your home? No 06/22/2023 Comments Unknown Sex and Gender Information Value Date Recorded Sex Assigned at Female 06/27/2022 10:28 AM EDT Legal Sex Female 10:28 AM EDT Gender Identity Female 06/27/2022 10:28 AM EDT Sexual Orientation Straight 06/27/2022 10 :28 AM EDT documented as of this encounter Miscellaneous Notes * Telephone Encounter - Maria Fernanda Rodriguez - 09/14/2023 3:34 PM EST Tc from mom calling in regards to referral above. Mom states referral needs to be sent prior to 09/19 appointment. * Telephone Encounter - Hortensia Melgar - 09/14/2023 12:16 PM EST TC from sandip with [facility] requesting a referral to DATE: 09/19/23 TIME: 12pm Location: [address] [place] [address] Facility: [facility] Type of Specialist: Speech Any questions may contact sandip at [phone] ext [phone] documented in this encounter Plan of Treatment Upcoming Encounters Date Type Department Care Team (Late st Contact Info) Description 07/16/2025 1:00 PM EST Office Visit [facility] ADULT DENTAL [address] [place] [address] Rachael Lara documented as of this encounter Visit Diagnoses Not on filedocumented in this encounter Care Teams Baggage Porter Relationship Specialty Start Date End Date Therese Godoy MD [address] [place] [address] PCP - General Family Medicine 07/10/15 documented as of this encounter
--- NOTE | 2025-01-31 15:00 | CA_ITS ---
Transthoracic Echocardiogram Patient (Last, First, Middle): Ginny Perez, Gender: Female Date of : 1995 Age: 30 Procedure Date: 01/31/2025 Procedure Type: Transthoracic Echocardiogram Location: OP Height: 132.08 cm Weight: 39.46 kg BSA: 1.18 m2 Heart Rate: bpm BP: 116 / 60 mmHg Executive Receptionist: Referring MD: Therese Godoy MD Symptoms: R01.1 CARDIAC MURMUR Study Quality: Adequate ECG Rhythm: Sinus Conclusions: - The left ventricular systolic function is normal. The calculated ejection fraction is 63% by biplane method. - The mitral valve appears myxomatous. There is mild mitral valve regurgitation. Findings Left Ventricle Normal left ventricular cavity size. There is normal left ventricular wall thickness. The left ventricular systolic function is normal. The calculated ejection fraction is 63% by biplane method. There is no evidence of regional wall motion abnormalities. Diastolic function is normal for age. Right Ventricle Normal right ventricular cavity size and systolic function. Atria Both atria are normal in size. Aortic Valve There is a normal trileaflet aortic valve. There is no aortic valve stenosis. There is no aortic valve regurgitation. Mitral Valve The mitral valve appears myxomatous. There is mild anterior and posterior mitral leaflet thickening. There is mild mitral valve regurgitation. There is no mitral valve stenosis. Pulmonic Valve There is trace pulmonic valve regurgitation. Tricuspid Valve There is trace tricuspid valve regurgitation. There is no evidence of pulmonary hypertension. Great Vessels The asc aorta is normal in size. Venous The inferior vena cava is normal in size and collapses greater than 50% with inspiration. Pericardium/Pleural There is no evidence of pericardial effusion. Prior Study Comparison No prior study available for comparison. Measurements 2D Linear Measurements IVSd: 0.88 0.6-0.9/0.6-1.0 cm LVIDd: 3.36 3.9-5.3/4.2-5.9 cm LVIDd Index: 2.85 2.4-3.2/2.2-3.1 cm/m2 LVIDs: 1.87 2.0-3.6 cm LVPWd: 0.81 0.7-1.1 cm Ao Root: 2.20 2.1-3.5 cm LA Diam: 2.80 2.7-3.8/3.0-4.0 cm LAIDs Index: 2.37 1.5-2.3 cm/m2 LV Mass: 95.05 67-162/88-224 g LV Mass Index: 80.55 43-95/49-115 g/m2 LVOT Diam: 2.00 3.0+(-)1.3 cm 2D Systolic Function EF 4C: 66.80 >55% EF 2C: 57.30 >55% EF BiP: 62.70 >55% Mitral Valve MV VTI: 0.24 MV Pk Buck: 1.15 MV Mn Buck: 0.76 MV Pk Grad: 5.00 MV Mn Grad: 3.00 MV Pk E: 0.97 MV PK A: 0.82 MV Decel Time: 131.00 E/A: 1.20 E'Lateral: 11.10 E'Medial: 9.36 E/E' Med: 10.30 E/E' Lat: 8.70 PHT: 38.00 MVA PHT: 5.79 MVA Continuity: 2.71 Decel Cascade: 7.38 Aortic Valve AoV Pk Buck: 1.51 AoV Mn Buck: 1.02 AoV VTI: 0.29 AoV Pk Grad: 9.00 Aov Mn Grad: 5.00 JESSIE Cont.VTI: 2.29 LVOT LVOT Pk Buck: 1.11 LVOT Mn Buck: 0.77 LVOT VTI: 0.21 LVOT Pk Grad: 5.00 LVOT Mn Grad: 3.00 LVOT Diam: 2.00 LVOT Area: 3.14 Diastolic Function MV Pk E: 0.97 MV Pk A: 0.82 E/A: 1.20 E'Medial: 9.36 E/E' Med: 10.30 E' Laterial: 11.10 E/E' Lat: 8.70 Right Ventricle TAPSE (mm): 30.00 TVS' Buck: 15.00 Tricuspid Valve TR Pk Buck: 1.77 TR Pk Grad: 13.00 RA Press: 3.00 RVSP: 16.00 Great Vessels Aorta Ao Root-2D: 2.20 2.0-3.7 cm Ao Asc: 1.80 2.1-3.4 cm Ao Arch: 1.70 Pulmonary Valve PV Pk Buck: 1.31 Peak PV Grad: 7.00 Updated in Other Vendor System with Status of Final Omega Cat MD electronically signed on 02/01/2025 12:58:43 PM with status of Final
== END ==
LOC: HO.CARD 14:57
PROVIDERS: PCP Student in an Organized Health Care Education/Training Program; Visit Provider Student in an Organized Health Care Education/Training Program
DX: R01.0 Benign and innocent cardiac murmurs (principal)
CPT/HCPCS: 93306

== ENCOUNTER → 2025-01-31 15:00 | Outpatient (BNV) | payer MEDICARE, MEDICAID, SELFPAY | PROVIDERS: PCP Student in an Organized Health Care Education/Training Program; Visit Provider Internal Medicine | DX: I34.1 Nonrheumatic mitral (valve) prolapse (principal); I34.0 Nonrheumatic mitral (valve) insufficiency | CPT/HCPCS: 93306 ==

== ENCOUNTER 2025-03-26 11:19 | Outpatient (REF) | payer MEDICARE, MEDICAID, SELFPAY ==
--- OUTSIDE RECORDS SUMMARY | 2025-03-26 12:23 | XMS_ITS | Encounter Summary ---
Author Organization [employer] Address [address] [facility] 7t [place] [address] Care Team Providers Care Sheet Metal Layout Worker Name Role Phone Therese Godoy MD Primary Care Provider [phone] Reason for Visit * Reason Onset Date Comments Referral 09/14/2023 Encounter Details Date Type Department Care Team ([facility] st Contact Info) Description 09/14/2023 Telephone [facility] CH[facility] MED & PEDS [address] [place], [place] [phone] Therese Godoy MD [address] [place] [address] Referral Social History Tobacco Use Types Packs/Day [...] to 09/19 appointment. * Telephone Encounter - Hrotensia Melgar - 09/14/2023 12:16 PM EST TC from sandip with [facility] requesting a referral to DATE: 09/19/23 TIME: 12pm Location: [address] [place] [address] Facility: [facility] Type of Specialist: Speech Any questions may contact sandip at [phone] ext [phone] documented in this encounter Plan of Treatment Upcoming Encounters Date Type Department Care Team (Late st Contact Info) Description 05/02/2025 9:15 AM EDT Office Visit [facility] CH[facility] MED & PEDS [address] [place] [address] Therese Godoy MD [address] [place] [address] 07/16/2025 1:00 PM EST Office Visit [facility] ADULT DENTAL [address] [place] [address] Rachael Lara documented as of this encounter Visit Diagnoses Not on filedocumented in this encounter Care Teams Sheet Metal Layout Worker Relationship Specialty Start Date End Date Therese Godoy MD [address] [place] [address] PCP - General Family Medicine 07/10/15 documented as of this encounter
--- OUTSIDE RECORDS SUMMARY | 2025-03-26 12:23 | XMS_ITS | Clinical Summary ---
Author Organization [address] Address [address] [place] [address] Phone Care Team Providers Care Bus Starter Name Role Phone Therees Godoy MD Primary Care Provider [phone] Allergies Active Allergy Reactions Criticality Noted Date Comments Adhesive Tape-Silicones 11/05/2024 Sulfamethoxazole-Trimethoprim 2024 Clindamycin 11/05/2024 Penicillins 11/05/2024 Sulfa (Sulfonamide Antibiotics) 10/26 Medications fluticasone propionate (FLONASE) 50 mcg/actuation nasal spray 5 Active busPIRone (BUSPAR) 5 mg tablet 5 Active neomycin-polymyxi n-hydrocortisone (CORTISPORIN) otic solution PLACE 3 DROPS INTO THE AFFECTED EAR(S) FOUR TIMES DAILY FOR 7 DAYS 5 Active levothyroxine (SYNTHROID, LEVOTHROID) 25 mcg tablet 5 Active ketoconazole (NIZORAL) 2 % shampoo 5 Active metroNIDAZOLE (METROCREAM) 0.75 % cream 5 Active mupirocin (BACTROBAN) 2 % ointment 5 Active tacrolimus (PROTOPIC) 0.1 % ointment 5 Active acetaminophen (TYLENOL 8 HOUR) 650 mg 8 hr tablet Take 1 tablet (650 mg total) by mouth every 8 (eight) hours if needed for mild pain. Do not crush, chew, or split. Active cetaphil (CETAPHIL) cream Apply topically if needed for dry skin. Active nystatin (MYCOSTATIN) 100,000 unit/gram powder Apply topically 2 (two) times a day. Active pediatric multivitamin chewable tablet Chew 1 tablet 1 (one) time each day. Active cholecalciferol (VITAMIN D-3) 25 mcg (1,000 unit) tablet Take 1 tablet (1,000 Units total) by mouth 1 (one) time each day. Active ofloxacin (FLOXIN) 0.3 % otic solution INSTILL 5 DROPS INTO THE RIGHT EAR 2 TIMES A DAY FOR 10 DAYS DIRECTED Active camphor-menthoL (SARNA) lotion Apply topically if needed for itching. Active fluocinolone and shower cap ([facility]-Smoothe/FS Scalp Oil) 0.01 % oil by scalp route. Active betamethasone, augmented, (DIPROLENE-AF) 0.05 % cream Apply topically 2 (two) times a day. 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 11/05/2024 Sleep apnea 11/05/2024 Enuresis 11/05/2024 Down syndrome 04/29/2014 Overview (11/05/2024): Down syndrome Family History Medical History Relation Name Comments Crohn's disease Mother Celiac disease Neg Hx Colon cancer Neg Hx Relation Name Status Comments Mother Social History Tobacco Use Types Packs/Day Years Used Date Smoking Tobacco: Never Smokeless Tobacco: Never Tobacco Cessation:Counseling Given: Not Answered Alcohol Use Standard Drinks/Week Comments Never 0 (1 standard drink = 0.6 oz pur e alcohol) Comments Unknown Sex and Gender Information Value Date Recorded Sex Assigned at Not on file Legal Sex Female 5:11 AM EST Gender Identity Not on file Sexual Orientation Not on file Obstetrics History Last Filed Vital Signs Vital Sign Reading Time Taken Comments Blood Pressure - - Pulse - - Temperature - - Respiratory Rate - - Oxygen Saturation - - Inhaled Oxygen Concentration - - Weight 39.9 kg (88 lb) 11/05/2024 10:35 AM EDT Height 132.1 cm (4' 4 ) 11/05/2024 10:35 AM EDT Body Mass Index 22.88 11/05/2024 10:35 AM EDT Plan of Treatment Health Maintenance Due Date Last Done Comments Cervical Cancer Screening: Pap Smear 2014 HIV Screening 07/31/2022 Hepatitis C Screening 07/31/2022 Medicare Annual Wellness Visit 07/31/2022 Social Influencers of Health Screening 07/31/2022 Depression Screening 08/28/2024 COVID-19 Vaccine (7 - Pfizer risk season) 2024 06/01/2024, 06/26/2023, 07/19/2022, Additional history exists Influenza Vaccine (#1) 2025 , 06/05/2023, 06/08/2022, Additional history exists DTaP,Tdap,and Td Vaccines (10 - Td or Tdap) 01/09/2027 01/09/2017, 02/15/2011, 02/06/2008, Additional history exists Hepatitis B Vaccines Completed 1995, [birth year] HIB Vaccines Completed 05/05/1994, 08/28, 1993, Additional history exists IPV Vaccines Completed 01/27/1998, 08/29, 1993, Additional history exists MMR Vaccines Completed 01/27/1998, 05/05/1994 HPV Vaccines Completed 08/27/2007, 03/30, 02/21/2007 Varicella Vaccines Completed 12/05/2007, 06/21/1995 Meningococcal ACWY Vaccine Aged Out 02/20/2012, No longer eligible based on patient's age to complete this topic Hepatitis A Vaccines Aged Out 04/08/2014 No long er eligible based on patient's age to complete this topic Pneumococcal Vaccine: Pediatrics (0 to 5 Years) and At-Risk Patients (6 to 49 Years) Aged Out 01/09/2017 No longer eligible based on patient's age to complete this topic Meningococcal B Vaccine Aged Out No l onger eligible based on patient's age to complete this topic RSV Immunization Patients Under 20 months Aged Out No longer eligible based on patient's age to complete this topic Insurance MEDICARE MEDICAID - [place] Care Teams Bus Starter Relationship Specialty Start Date End Date Therese Godoy MD [address] [place] [phone] PCP - General Family Medicine 10/09/24
--- OUTSIDE RECORDS SUMMARY | 2025-03-26 12:23 | XMS_ITS | Encounter Summary ---
Author Organization [facility] Address [address] [place] [address] Phone Care Team Providers Care Buffing Wheel Raker Name Role Phone Therese Godoy MD Primary Care Provider [phone] Encounter Details Date Type Department Care Team (Late st Contact Info) Description 03/25/2025 Refill [facility] [address] [place] [address] Judi Strickland RN [address] [place] [address] [email or web address] Social History Tobacco Use Types Packs/Day Years Used Date Smoking Tobacco: Never Smokeless Tobacco: Never Alcohol Use Standard Drinks/Week Comments Never 0 (1 standard drink = 0.6 oz pur e alcohol) Education Answer Date Recorded Are you interested in more education? Not on gabriele e 12/24/2022 Are you concerned about learning? Not on file 12/24/2022 No 12/24/2022 No 12/24/2022 Digital Access Answer Date Recorded No 01/24/2023 No 01/24/2023 Reliable internet access at home? Not on file 01/24/2023 Device with a working camera? Not on file Comments Unknown Sex and Gender Information Value Date Recorded Sex Assigned at Female 12/12/2024 11:30 AM EDT Legal Sex Female 12:07 AM EDT Gender Identity Female 12/12/2024 11:30 AM EDT Sexual Orientation Straight 12/12/2024 11 :30 AM EDT documented as of this encounter Progress Notes * Judi Strickland RN - 03/25/2025 3:36 PM EDT Images from the original note were not included. Brisa Sadler MD You6 minutes ago (3:25 PM) Decrease BuSpar to 5 mg in the AM and 2.5 mg in the PM x 5 days than stop. Please review symptoms of withdrawal Thanks Outgoing call placed to mom and she added Suha/staff to the call -Advised per Dr Sadler to decrease BuSpar to 5 mg in the AM and 2.5 mg in the PM x 5 days than stop. -Advised re: withdrawal symptoms as well. -Rx prepped -Med Order sent to Donna EDWARDS at [email or web address] - Suha to notify Donna as well -Dad would like us to Cc him on the med order email at [email or web address] * Judi Strickland RN - 03/25/2025 1:06 PM EDT Received a call from patient mother/An: # [phone] 03/20 increased to 10 mg AM and 7.5 mg PM - still has not increased to 10 mg BID Outgoing call placed to patients mother: -Mother states Ginny is putting things in her mouth (fingers, loofa, facecloth, shower head) only while in the shower x 1-2 weeks- only happening when she is in the shower - showers in AM after morning dose and mom concerned it is related to med increase -Patient had episode where she was not responsive to anyone around her like she was in her own world mom states she has not had this behavior since she was little, mom concerned she needs to be seen by neurologist again and she isn't sure if this is connected to Buspar as well. - EEG done at that time when she was little and was reported negative per mom - staring/trance like episodes x 2 in past 24 hours. (See below for staff details) - No behaviors noted at home over the weekend Spoke with staff member (Suha- Director of life skills department) with parents on the line: Her report of these episodes is as follows: -During morning routines staff reported chewing on her hands only when in shower, chewing robe, towel, washcloth -Mouthing behaviors have been increasing in frequency -Monday staff noted her moving her jaw back and forth, mouthing wash cloth with soap on it, described as rapid and repetitive movements, would not respond during that time, would not answer questions, eyes seemed heavy and trance like, tried to eat her deodorant, laid in bed which is not her routine, not responding to questions, 5-6 minutes later she started to participate in her routine, still did not communicate for another 10 minutes, then went on as any other typical day -Same type of episode happened at the same time of day today in same manner -Staff report that she was able to walk and sometimes following verbal prompts during the episode -Staff reports she has had shutting down behaviors in the past but that this seems different and Suha states she is concerned, as she has known Germane for many years and this behavior feels different -Dad would like to consider stopping Buspar for a few days to see if the symptoms resolve - Routed to Dr Sadler for review documented in this encounter Plan of Treatment Upcoming Encounters Date Type Department Care Team (Late st Contact Info) Description 05/02/2025 3:45 [place] [address] Brisa Sadler MD [address] [place] [address] [email or web address] 01/22/2026 3:00 PM EDT Nutrition [address], [address] [place] [address] Rich Miles MD, MPH [address] [place] [address] [email or web address] [email or web address], [email or web address] [address] [place] [address] [email or web address] 01/22/2026 4:00 PM EDT Office Visit [address], [address] [place] [address] Rich Miles MD, MPH [address] [place] [address] [email or web address] documented as of this encounter Visit Diagnoses Not on filedocumented in this encounter Care Teams Buffing Wheel Raker Relationship Specialty Start Date End Date Therese Godoy MD [address] [place] [address] PCP - General Family Medicine 05/09/18 documented as of this encounter Additional Source Comments The information contained in this document represents components of the legal health record. It is not the complete legal health record.[facility]
== END 2025-03-26 11:20 | disposition home or self-care (01) ==
LOC: HO.CHCLDS 11:19
PROVIDERS: Visit Provider Student in an Organized Health Care Education/Training Program
DX: E05.90 Thyrotoxicosis, unspecified without thyrotoxic crisis or storm (principal); G40.A09 Absence epileptic syndrome, not intractable, without status epilepticus
CPT/HCPCS: 36415; 84443

== ENCOUNTER → 2025-04-01 15:09 | Outpatient (BNV) | payer MEDICARE, MEDICAID, SELFPAY | PROVIDERS: PCP Student in an Organized Health Care Education/Training Program; Visit Provider Radiology Diagnostic Radiology | DX: R56.9 Unspecified convulsions (principal) | CPT/HCPCS: 70551 ==

== ENCOUNTER 2025-04-01 15:11 | Outpatient (REF) | payer MEDICARE, MEDICAID, SELFPAY ==
--- NOTE | ~2025-04-01 | MR_ITS ---
EXAMINATION: MR BRAIN WITHOUT CONTRAST CLINICAL INFORMATION: Seizures COMPARISON: No prior MRI. CT head 09/25/2024. TECHNIQUE: MRI of the brain was obtained using routine sequences without contrast. Exam performed on a 1.5 Barbara Siemens high-field unit. FINDINGS: There is no diffusion restriction. There is no intracranial hemorrhage, acute infarction, mass effect, or edema. Ventricles, sulci, and cisterns are normal in size and configuration for patient age. No shift of midline. No abnormal hemosiderin deposition is identified. There are no focal white matter signal abnormalities. There is no hippocampal atrophy. There is no heterotopic burris matter or cortical dysplasia. Midline structures appear normally formed. The pituitary gland appears normal. Posterior fossa structures appear normal. Cerebellar tonsils are appropriately located. Major flow voids are preserved within the skull base. The globes and orbital contents demonstrate no abnormalities. Paranasal sinuses are clear bilaterally. Nasal septum is midline without spur. The mastoids and tympanic cavities are normally aerated. Extracranial soft tissues demonstrate no abnormalities. No suspicious bone marrow changes are evident. Atlantoaxial joint is normal. MR/MR head/brain wo con IMPRESSION: 1. No evidence of intracranial hemorrhage, acute infarction, mass effect, or edema. Normal MRI of the brain. Electronically signed by: Sandor Campbell MD 04/01/2025 04:08 PM EDT
--- OUTSIDE RECORDS SUMMARY | 2025-04-01 15:47 | XMS_ITS | Encounter Summary ---
Author Organization [facility] Address [address] [place] [address] Phone Care Team Providers Care Industrial Green Systems Designer Name Role Phone Therese Godoy MD Primary Care Provider [phone] Reason for Visit * Reason Comments Medication Refill Encounter Details Date Type Department Care Team (Late st Contact Info) Description 03/27/[address] [address] Brisa Sadler MD 1 [place] [address] [email or web address] Medication Refill Social History Tobacco Use Types Packs/Day Years [...] AM EDT documented as of this encounter Plan of Treatment Upcoming Encounters Date Type Department Care Team (Late st Contact Info) Description 05/02/2025 3:45 PM EDT Telemedicine [facility] 1 [place] [address] Brisa Sadler MD 1 [place] [address] [email or web address] 01/22/2026 3:00 PM EDT Nutrition [facility] Medical [address], [address] [address] Rich Miles MD, MPH [address] [place] [address] [email or web address] Simin Snyder LDN [address] [place] [address] [email or web address] 01/22/2026 4:00 PM EDT Office Visit [facility] Medical [address], [address] [address] Rich Miles MD, MPH [address] [place] [address] [email or web address] documented as of this encounter Visit Diagnoses Not on filedocumented in this encounter Care Teams Industrial Green Systems Designer Relationship Specialty Start Date End Date Therese Godoy MD [address] [place] [address] PCP - General Family Medicine 05/09/18 documented as of this encounter Additional Source Comments The information contained in this document represents components of the legal health record. It is not the complete legal health record.[facility]
--- OUTSIDE RECORDS SUMMARY | 2025-04-01 15:47 | XMS_ITS | Clinical Summary ---
Author Organization [address] Address [address] [place] [address] Phone Care Team Providers Care Blowing Engineer Name Role Phone Therese Godoy MD Primary Care Provider [phone] Allergies Active Allergy Reactions Criticality Noted Date [...] for itching. Active fluocinolone and shower cap (Ross-Smoothe/FS Scalp Oil) 0.01 % oil by scalp [...] Insurance MEDICARE MEDICAID - [place] Care Teams Blowing Engineer Relationship Specialty Start Date End Date Therese Godoy MD [address] [place] [phone] PCP - General Family Medicine 10/09/24
--- OUTSIDE RECORDS SUMMARY | 2025-04-01 15:47 | XMS_ITS | Encounter Summary ---
Author Organization [employer] Address [address] [facility] 7t [place] [address] Care Team Providers Care Inventory Accountant Name Role Phone Therese Godoy MD Primary Care Provider [phone] Reason for Visit * Reason Onset Date Comments Referral 09/14/2023 Encounter Details Date Type Department Care Team ([facility] st Contact Info) Description 09/14/2023 Telephone [facility] MED & PEDS [address] [place], [place] [phone] Therese Godoy MD [address] [place] [address] Referral Social History Tobacco Use Types Packs/Day [...] 12:16 PM EST TC from sandip with [facility] requesting a referral to DATE: 09/19/23 TIME: 12pm Location: [address] [place] [address] Facility: [facility] Type of Specialist: Speech Any questions may contact sandip at [phone] ext [phone] documented in this encounter Plan of Treatment Upcoming Encounters Date Type Department Care Team (Late st Contact Info) Description 05/02/2025 9:15 AM EDT Office Visit [facility] CH[facility] MED & PEDS [address] [place] [address] Therese Godoy MD [address] [place] [address] 07/16/2025 1:00 PM EST Office Visit [facility] ADULT DENTAL [address] [place] [address] Rachael Lara documented as of this encounter Visit Diagnoses Not on filedocumented in this encounter Care Teams Inventory Accountant Relationship Specialty Start Date End Date Therese Godoy MD [address] [place] [address] PCP - General Family Medicine 07/10/15 documented as of this encounter
== END 2025-04-01 15:12 | disposition home or self-care (01) ==
LOC: HO.MRI 15:11
PROVIDERS: PCP Student in an Organized Health Care Education/Training Program; Visit Provider Student in an Organized Health Care Education/Training Program
DX: G40.A09 Absence epileptic syndrome, not intractable, without status epilepticus (principal)
CPT/HCPCS: 70551

== ENCOUNTER 2025-06-19 12:26 | Outpatient (AMB) | payer MEDICARE, MEDICAID, SELFPAY ==
--- NOTE | 2025-06-19 12:32 | MHC.OFFVIS ---
Intake Visit Reasons: Absence Sz with automatism Allergies bacitracin Allergy (Unknown, Verified 09/25/24 22:22) Unknown penicillin V Allergy (Unknown, Verified 09/25/24 22:22) Unknown Penicillins (PENICILLINS) Allergy (Unknown, Verified 09/25/24 22:22) UNKNOWN Sulfa (Sulfonamide Antibiotics) (SULFA (SULFONAMIDE ANTIBIOTICS)) Allergy (Unknown, Verified 09/25/24 22:22) UNKNOWN sulfacetamide Allergy (Unknown, Verified 09/25/24 22:22) Unknown adhesive Allergy (Unknown, Uncoded 09/25/24 22:22) Unknown Clindamycin HCl Allergy (Unknown, Uncoded 09/25/24 22:22) Unknown HPI Comments Details: 30 years old woman with Down syndrome who I initially saw in 2018 when she presented after couple of fainting episodes. At that time seizure disorder was considered and an EEG was performed, which was normal. She lost to follow-up and now she was back after many years. She is presenting with unresponsiveness and potential seizures. Reports indicate that the episodes began in March, characterized by unresponsive states lasting about an hour, accompanied by automatic chewing and biting movements. Initially presumed linked to a medication, these events occurred again without the medication, suggesting an alternative etiology. Accompanying symptoms have included fatigue and thirst, without notable changes in appetite or involvement of stressors like substance abuse or significant emotional triggers. An EEG in the patient's history was noted as normal post-syncope episodes in 2018. Although MRI results have been mentioned, specific findings were not discussed. No familial history of relevant neurovascular conditions was noted. [facility] Medical History (Updated 06/19/25 @ 13:11 by Sly Juarez MD) Sleep apnea Down syndrome Absence seizure with automatisms Hypothyroidism Graves disease Hyperthyroidism Surgical History Hx of tonsillectomy Family History Mother No problems noted. Maternal Grandmother Goiter Sister Orlando's disease Social History Housing: Other Housing Other:: Resides at [employer] Do you presently have visiting nurse or other home services: Yes (School Nurse Donna [phone] Ext [phone]) Alcohol intake: never Patient Tobacco Use Status: Never used Tobacco Review of Systems Narrative Constitutional:? More fatigue was noted. HEENT:?No headache, vision changes, hearing loss, nasal congestion, sore throat. Cardiovascular:?No chest pain, palpitations, orthopnea, PND, or leg swelling. Respiratory:?No cough, shortness of breath, wheezing, or hemoptysis. Gastrointestinal:? Increase thirst was noted. Genitourinary:? Frequent urination was reported Musculoskeletal:?No joint pain, stiffness, weakness, or muscle aches. Psychiatric:? Staff reported some anxiety. Endocrine:?No heat/cold intolerance, polydipsia, polyuria, or hair/skin changes. Hematologic/Lymphatic:?No easy bruising, bleeding, or lymphadenopathy. Integumentary (Skin):?No rash, lesions, itching, or color changes. Allergic/Immunologic:?No seasonal allergies, hives, or recurrent infections. Physical Exam Neuro Other: Mental Status: She is alert and awake cooperative calm answers questions in no distress. She did not talk much but answered questions were asked. Cranial Nerves: CN II: Visual clayton full to confrontation, visual acuity intact. CN III, IV, : Pupils equal, round, reactive to light and accommodation. Extraocular movements are normal. CN V: Facial sensation is normal. CN VII: Facial movements symmetrical. CN VIII: Hearing intact to bedside conversation is normal. CN IX, X: Palate elevates symmetrically. CN XI: Shoulder shrug and head turn symmetrical. CN XII: Tongue midline without atrophy or fasciculations. Gait is normal. No obvious arm or leg weakness. Extrapyramidal: Full facial expressions and blinking. No rigidity. Movements are appropriate with no tremor or abnormality. Speech: Normal; no dysarthria or tremor. Assessment & Plan Assessment & Plan (1) Complex partial seizure disorder: Comment: [place] brain [place] [facility] [place]: WNL Code(s): G40.209 - Localization-related (focal) (partial) symptomatic epilepsy and epileptic syndromes with complex partial seizures, not intractable, without status epilepticus Category: Medical Qualifiers: Epilepsy type: partial symptomatic Intractability: not intractable Status epilepticus: without status epilepticus Qualified Code(s): G40.209 - Localization-related (focal) (partial) symptomatic epilepsy and epileptic syndromes with complex partial seizures, not intractable, without status epilepticus (2) Down syndrome: Code(s): Q90.9 - Down syndrome, unspecified Category: Medical Plan Impression recommendations: 30 years old woman who probably suffering from complex partial seizure disorder. I have reviewed couple of videos shunt to me which provided evidence for symptoms of complex partial seizures. An EEG is ordered and I would consider treatment afterwards. Common sense measures were discussed in case it happens again. As far as some other symptoms are concerned like frequent urination and increased thirst, fasting metabolic profile was ordered to rule out hyperglycemia I discussed the likely diagnosis of complex partial seizures with the patient and her caregiver, emphasizing the need for an EEG to guide management decisions. Orders: Orders EEG Routine Today G40.209 - Localization-related (focal) (partial) symptomatic epilepsy and epileptic syndromes with complex partial seizures, not intractable, without status epilepticus Basic Metabolic Panel Fasting Today G40.209 - Localization-related (focal) (partial) symptomatic epilepsy and epileptic syndromes with complex partial seizures, not intractable, without status epilepticus Coding Level of Care Code New Pt Level 4 (87549) Diagnoses Partial symptomatic epilepsy with complex partial seizures, not intractable, without status epilepticus G40.209 Epilepsy type: partial symptomatic Intractability: not intractable Status epilepticus: without status epilepticus Down syndrome Q90.9
--- OUTSIDE RECORDS SUMMARY | 2025-06-19 15:34 | XMS_ITS | Encounter Summary ---
Author Organization [employer] Address [address] [place] [address] Care Team Providers Care Sqe Name Role Phone Therese Godoy MD Primary Care Provider Reason for Visit * Reason Onset Date Comments Referral 09/14/2023 Encounter Details Date Type Department Care Team ([facility] st Contact Info) Description 09/14/2023 Telephone [facility] CHC MED & PEDS [address] [place], [place] [phone] Therese Godoy MD [address] [place] [address] Referral Social History Tobacco Use Types Packs/Day [...] Notes * Telephone Encounter - Maria Fernanda Michael - 09/14/2023 3:34 PM EST Tc from mom calling in regards to referral above. Mom states referral needs to be sent prior to 09/19 appointment. * Telephone Encounter - Hortensia Melgar - 09/14/2023 12:16 PM EST TC from sandip with [facility] requesting a referral to DATE: 09/19/23 TIME: 12pm Location: [address] [place] [address] Facility: [facility] Type of Specialist: Speech Any questions may contact sandip at [phone] ext [phone] documented in this encounter Plan of Treatment Upcoming Encounters Date Type Department Care Team (Late st Contact Info) Description 07/16/2025 12:45 PM EST Office Visit [facility] ADULT DENTAL [address] [place] [address] Rachael Lara 08/11/2025 10:30 AM EST Office Visit [facility] CHC MED & PEDS [address] [place] [address] Brisa Fox MD [address] [place] [address] documented as of this encounter Visit Diagnoses Not on filedocumented in this encounter Care Teams Sqe Relationship Specialty Start Date End Date Therese Godoy MD [address] [place] [address] PCP - General Family Medicine 07/10/15 06/27/25 documented as of this encounter
--- OUTSIDE RECORDS SUMMARY | 2025-06-19 15:34 | XMS_ITS | Encounter Summary ---
Author Organization [employer] Address [address] [facility] 7t [place] [address] Care Team Providers Care Print Line Inspector Name Role Phone Therese Godoy MD Primary Care Provider [phone] Encounter Details Date Type Department Care Team (Late st Contact Info) Description 08/09/2023 Orders Only [facility] CHC MED & PEDS [address] [place], [place] [phone] Rocky Conte MD [address] [place] [address] Macrocytosis without anemia (Primary Dx) Social History Tobacco Use Types Packs/Day Years [...] Description 07/16/2025 12:45 PM EST Office Visit [facility] ADULT DENTAL [address] [place] [address] Rachael Lara 08/11/2025 10:30 AM EST Office Visit [facility] CHC MED & PEDS [address] [place] [address] Brisa Fox MD [address] [place] [address] documented as of this encounter Visit Diagnoses Diagnosis Macrocytosis without anemia- Primary Other specified diseases of blood and blood-forming organs documented in this encounter Care Teams Print Line Inspector Relationship Specialty Start Date End Date Therese Godoy MD [address] [place] [address] PCP - General Family Medicine 07/10/15 06/27/25 documented as of this encounter
--- OUTSIDE RECORDS SUMMARY | 2025-06-19 15:35 | XMS_ITS | Encounter Summary ---
Author Organization [employer] [facility] Address [address] [facility] 7 [place] [address] Care Team Providers Care Lead Software Architect Name Role Phone Therese Godoy MD Primary Care Provider [phone] Encounter Details Date Type Department Care Team (Latest Contact Info) Description 09/05/2018 Abstract [facility] CONVERSIONS Dental, Provider, DDS Social History Tobacco Use Types Packs/Day Years Used Date Smoking Tobacco: Never Assessed Comments Unknown Sex and Gender Information Value [...] Description 07/16/2025 12:45 PM EST Office Visit [facility] ADULT DENTAL [address] [place] [address] Rachael Lara 08/11/2025 10:30 AM EST Office Visit [facility] CHC MED & PEDS [address] [place] [address] Brisa Fox MD [address] [place] [address] documented as of this encounter Visit Diagnoses Not on filedocumented in this encounter Care Teams Lead Software Architect Relationship Specialty Start Date End Date Therese Godoy MD [address] [place] [address] PCP - General Family Medicine 07/10/15 06/27/25 documented as of this encounter
--- OUTSIDE RECORDS SUMMARY | 2025-06-19 15:35 | XMS_ITS | Encounter Summary ---
Author Organization [employer] Address [address] [facility] 7t [place] [address] Care Team Providers Care Director Of Retail Marketing Name Role Phone Therese Godoy MD Primary Care Provider [phone] Reason for Visit * Reason Onset Date Comments Dr. Llanes discontinue medication 01/03/2025 Encounter Details Date Type Department Care Team ([facility] st Contact Info) Description 01/03/2025 Telephone [facility] ADULT DENTAL [address] [place], [place] [phone] Zofia Ma DDS [address] [place], [place] [phone] Dr. Llanes discontinue medication Social History Tobacco Use Types Packs/Day Years [...] services in your home? No 06/22/2023 Comments No Sex and Gender Information Value Date Recorded Sex Assigned at Female 06/27/2022 10:28 AM EDT Legal Sex Female 10:28 AM EDT Gender Identity Female 06/27/2022 10:28 AM EDT Sexual Orientation Straight 06/27/2022 10 :28 AM EDT documented as of this encounter Miscellaneous Notes * Telephone Encounter - Leona Jordan - 01/03/2025 3:27 PM EDT Winsome from [employer] is checking if medication can be discontinued du topatient non cooperative with getting mouthwash into mouth. Needs verification that it can be discontinued. Please call Wins[employer] to verify at [phone] ext [phone] * Telephone Encounter - Jean Dash - 01/03/2025 9:40 AM EDT PT care center called to let know that pt is unable to spit or rinse mouth wash due to her disability. Care center wants to know if its okay to discontinue the mouthwash and not have her take it. Please call pt for confirmation of the discontinuation of mouthwash please and thank you. CS documented in this encounter Plan of Treatment Upcoming Encounters Date Type Department Care Team (Late st Contact Info) Description 07/16/2025 12:45 PM EST Office Visit [facility] ADULT DENTAL [address] [place] [address] Rachael Lara 08/11/2025 10:30 AM EST Office Visit [facility] CHC MED & PEDS [address] [place] [address] Brisa Fox MD [address] [place] [address] documented as of this encounter Visit Diagnoses Not on filedocumented in this encounter Care Teams Director Of Retail Marketing Relationship Specialty Start Date End Date Therese Godoy MD [address] [place] [address] PCP - General Family Medicine 07/10/15 06/27/25 documented as of this encounter
--- OUTSIDE RECORDS SUMMARY | 2025-06-19 15:35 | XMS_ITS | Encounter Summary ---
Author Organization [facility] Address [address] [place] [phone] Phone Care Team Providers Care Chart Clerk Name Role Phone Therese Godoy MD Primary Care Provider [phone] Reason for Visit * Reason Comments Medication Refill Encounter Details Date Type Department Care Team ([facility] st Contact Info) Description 03/27/[address] [address] Brisa Sadler MD 1 [place] [address] [email or web address] Medication Refill Social History Tobacco Use Types [...] Care Team (Late st Contact Info) Description 07/29/2025 7:00 PM EST Procedure visit [facility] Sleep Lab Home Sleep Apnea Testing Program [address] [place] [address] Lucio Ureña MD [address] [place] [address] [email or web address] 11/07/2025 3:45 PM EDT Telemedicine [address] [address] Brisa Sadler MD [address] [place] [id number] [email or web address] 01/22/2026 3:00 PM EDT Nutrition [facility] Medical Genetics [address] [place] [address], [address] [address] Rich Miles MD, MPH [address] [place] [phone] [email or web address] Snyder LDN [address] [place] [id number] [email or web address] 01/22/2026 4:00 PM EDT Office Visit [facility] Medical [address], [address] [address] Rich Miles MD, MPH [address] [place] [address] [email or web address] 01/22/2026 4:00 PM EDT Social Work [facility] Social Service Department [address] [place] [address] Rich Miles MD, MPH [address] [place] [address] [email or web address] Keri Hatch [address] [place] [address] [email or web address] documented as of this encounter Visit Diagnoses Not on filedocumented in this encounter Care Teams Chart Clerk Relationship Specialty Start Date End Date Therese Godoy MD [address] [place] [address] PCP - General Family Medicine 05/09/18 documented as of this encounter Additional Source Comments The information contained in this document represents components of the legal health record. It is not the complete legal health record.[facility]
--- OUTSIDE RECORDS SUMMARY | 2025-06-19 15:35 | XMS_ITS | Encounter Summary ---
Author Organization [employer] Address [address] [facility] 7t [place] [address] Care Team Providers Care Oven Loader Name Role Phone Therese Godoy MD Primary Care Provider [phone] Reason for Visit * Reason Onset Date Comments Referral 06/10/2025 Encounter Details Date Type Department Care Team ([facility] st Contact Info) Description 06/10/2025 Telephone [facility] MEDICINE [address] [place] [address] Therese Godoy MD [address] [place], [place] [phone] Referral Social History Tobacco Use Types Packs/Day Years Used Date Smoking Tobacco: Never Smokeless Tobacco: Never Housing Stability Answer Date Recorded What is your housing situation today? I have maritzakip le 05/02/[address] you li ve. Do you have problems with any of the following? None of the above 05/02/2025 Food Insecurity Answer Date Recorded Within the past 12 months, y ou worried that your food would run out before you got money to buy more: Never True 05/02/2025 Within the past 12 months,th e food you bought just didn't last and you didn't have enough money to get more: Never True 12/2024 Transportation Answer Date Recorded In the past 12 months, has l ack of transportation kept you from medical appts, meetings, work or from getting things needed for daily living? No 05/02/2025 Utilities Answer Date Recorded In the past 12 months, has t he electric, gas, oil or water company threatened to shut off services in your home? No 05/02/2025 Internet Access Answer Date Recorded Internet Access Q1 No 05/02/2025 Internet Access Q2 I do not want or need it 12/2024 Comments No Sex and Gender Information Value Date Recorded Sex Assigned at Female 06/27/2022 10:28 AM EDT Legal Sex Female 10:28 AM EDT Gender Identity Female 06/27/2022 10:28 AM EDT Sexual Orientation Straight 06/27/2022 10 :28 AM EDT documented as of this encounter Miscellaneous Notes * Telephone Encounter - Christina Dailey - 06/10/2025 11:49 AM EDT TC from Sally requesting new referral, Sally stated pt need new orthotics Address: [address] [place] [address] Facility Name: [facility] Phone # : Contact Sally at [phone] Ext. [phone] documented in this encounter Plan of Treatment Upcoming Encounters Date Type Department Care Team ([facility] st Contact Info) Description 07/16/2025 12:45 PM EST Office Visit [facility] ADULT DENTAL [address] [place] [address] Rachael Lara 08/11/2025 10:30 AM EST Office Visit [facility] CHC MED & PEDS [address] [place] [address] Brisa Fox MD [address] [place] [address] documented as of this encounter Visit Diagnoses Not on filedocumented in this encounter Care Teams Oven Loader Relationship Specialty Start Date End Date Therese Godoy MD [address] [place] [address] PCP - General Family Medicine 07/10/15 06/27/25 documented as of this encounter
--- OUTSIDE RECORDS SUMMARY | 2025-06-19 15:35 | XMS_ITS | Clinical Summary ---
Author Organization [address] Address [address] [place] [address] Phone Care Team Providers Care Technical Planner Name Role Phone Therese Godoy MD Primary Care Provider [phone] Allergies Active Allergy Reactions Criticality Noted Date [...] for itching. Active fluocinolone and shower cap ([place]-Smoothe/FS Scalp Oil) 0.01 % oil by scalp [...] COVID-19 Vaccine (7 - Pfizer risk season) 2025 06/01/2024, 06/26/2023, 07/19/2022, Additional history exists Influenza Vaccine (#1) 2025 , 06/05/2023, 06/08/2022, Additional history exists DTaP,Tdap,and Td Vaccines (10 - Td or Tdap) 01/09/2027 01/09/2017, 02/15/2011, 02/06/2008, Additional history exists RSV Immunization Adult Patients (1 - 1-dose 75+ series) 01/16/2068 Hepatitis B Vaccines Completed 1993, 1993, 1993 [...] Insurance MEDICARE MEDICAID - [place] Care Teams Technical Planner Relationship Specialty Start Date End Date Therese Godoy MD [address] [place] [id number] PCP - General Family Medicine 10/09/24
--- OUTSIDE RECORDS SUMMARY | 2025-06-19 15:35 | XMS_ITS | Encounter Summary ---
Author Organization [employer] Address [address] [facility] 7t [place] [address] Care Team Providers Care Compliance Review Specialist Name Role Phone Therese Godoy MD Primary Care Provider [phone] Encounter Details Date Type Department Care Team ([facility] st Contact Info) Description 09/25/2024 Telephone [facility] CHC MED & PEDS [address] [place], [place] [phone] Therese Godoy MD [address] [place] [address] Social History Tobacco Use Types Packs/Day Years Used Date Smoking Tobacco: Never Smokeless Tobacco: Never Housing Stability Answer Date Recorded What is your housing situation today? I have maritzakip le 06/22/[address] you [...] encounter Miscellaneous Notes * Telephone Encounter - Therese Godoy MD - 09/26/2024 1:06 PM EST Spoke to Mom for 45 mins and explained all questions.Pt referred to GI which she has seen 1 yr back * Telephone Encounter - Susannah Vargas RN - 09/26/2024 12:08 PM EST TC to mom, her concern is the most recent lab work where they were checking for celiac disease. Shefeels frustrated no results have been relayed. She states she was told the Dr had to review and then she would be hearing something. Mom spent a great deal of time explaining to this ad copy writer her frustrations with our healthcare system. She was sent the link to sign up for [employer] and advised this will allow results to be seen and messages sent. Mom agrees to sign up. Message to be sent to PCP to review CMP and CBC and to please review and advise. Mom also agrees to keep current PCP. * Telephone Encounter - Maile Canales - 09/25/2024 2:18 PM EST Pt 2 of 2 Tc from pt mother requesting to speak to manager intermediate Susannah. Mom would like to discuss health care concerns and possibly switching providers Contact pt mother An at [phone] documented in this encounter Plan of Treatment Upcoming Encounters Date Type Department Care Team (Late st Contact Info) Description 07/16/2025 12:45 PM EST Office Visit [facility] ADULT DENTAL [address] [place] [address] Rachael Lara 08/11/2025 10:30 AM EST Office Visit [facility] CHC MED & PEDS [address] [place] [address] Brisa Fox MD [address] [place] [address] documented as of this encounter Visit Diagnoses Not on filedocumented in this encounter Care Teams Compliance Review Specialist Relationship Specialty Start Date End Date Therese Godoy MD [address] [place] [address] PCP - General Family Medicine 07/10/15 06/27/25 documented as of this encounter
--- OUTSIDE RECORDS SUMMARY | 2025-06-19 15:35 | XMS_ITS | Encounter Summary ---
Author Organization [employer] Address [address] [facility] 7t [place] [address] Care Team Providers Care Compliance Assistant Name Role Phone Therese Godoy MD Primary Care Provider [phone] Reason for Visit * Reason Onset Date Comments Referral 12/27/2024 Encounter Details Date Type Department Care Team ([facility] st Contact Info) Description 12/27/2024 Telephone [facility] MEDICINE [address] [place] [address] Therese Godoy MD [address] [place], [place] [phone] Referral Social History Tobacco Use Types Packs/Day [...] encounter Miscellaneous Notes * Telephone Encounter - Kenia Annelise Kennedy - 12/27/2024 9:38 AM EDT Tc from pt father stating needing a EKG order after a routine check up at [facility]. Any questions contact pt dad [phone] documented in this encounter Plan of Treatment Upcoming Encounters Date Type Department Care Team (Late st Contact Info) Description 07/16/2025 12:45 PM EST Office Visit [facility] ADULT DENTAL [address] [place] [address] Rachael Lara 08/11/2025 10:30 AM EST Office Visit [facility] CHC MED & PEDS [address] [place] [address] Brisa Fox MD [address] [place] [address] documented as of this encounter Visit Diagnoses Not on filedocumented in this encounter Care Teams Compliance Assistant Relationship Specialty Start Date End Date Therese Godoy MD [address] [place] [address] PCP - General Family Medicine 07/10/15 06/27/25 documented as of this encounter
--- OUTSIDE RECORDS SUMMARY | 2025-06-19 15:35 | XMS_ITS | Encounter Summary ---
Author Organization [employer] Address [address] [facility] 7t [place] [address] Care Team Providers Care Impregnating Helper Name Role Phone Therese Godoy MD Primary Care Provider [phone] Encounter Details Date Type Department Care Team ([facility] st Contact Info) Description 01/11/2024 Abstract [facility] MED & PEDS [address] [place] [address] Susannah Vargas, RN [address] [place] [address] Social History Tobacco Use Types Packs/Day Years [...] Description 07/16/2025 12:45 PM EST Office Visit [facility] ADULT DENTAL [address] [place] [address] Jane Rachael 08/11/2025 10:30 AM EST Office Visit [facility] CHC MED & PEDS [address] [place] [address] Brisa Fox MD [address] [place] [address] documented as of this encounter Visit Diagnoses Not on filedocumented in this encounter Care Teams Impregnating Helper Relationship Specialty Start Date End Date Therese Godoy MD [address] [place] [address] PCP - General Family Medicine 07/10/15 06/27/25 documented as of this encounter
--- OUTSIDE RECORDS SUMMARY | 2025-06-19 15:35 | XMS_ITS | Clinical Summary ---
Author Organization [facility] Address [address] [place] [phone] Phone Care Team Providers Care Sales Mgr Name Role Phone Therese Godoy MD Primary Care Provider [phone] Allergies Active Allergy Reactions Criticality Noted Date Comments Bacitracin 10/26/2022 Clindamycin 10/26/2022 Penicillins Unknown 07/31/2007 Sulfa (Sulfonamide Antibiotics) Unknown 11/2006 Sulfamethoxazole-Trimethoprim 2020 Trimethoprim 10/26/2022 Medications fluticasone propionate (FLONASE) 50 mcg/actuation nasal spray 1 spray by Nasal route daily. Active cholecalciferol (VITAMIN D3) 1,000 unit tablet Take 1,000 Units by mouth daily. Active clotrimazole (LOTRIMIN) 1 % cream Apply topically 2 (two) times a day. 30 g 8 Active alclometasone (ACLOVATE) 0.05 % ointment Apply topically 2 (two) times a day. 8 Active methIMAzole (TAPAZOLE) 5 MG tablet Take 1 tablet (5 mg total) by mouth daily. 1 Active levothyroxine (SYNTHROID, LEVOTHROID) 50 MCG tablet Take 25 mcg by mouth every morning. Active glycerin-dimethic one-petrolatum Crea Apply topically as needed. Active metroNIDAZOLE (METROCREAM) 0.75 % cream Apply topically 2 (two) times a day. Active tacrolimus (PROTOPIC) 0.1 % ointment Apply topically 2 (two) times a day. Active camphor-menthoL (SARNA) lotion Apply topically as needed for itching. Active mupirocin (BACTROBAN) 2 % ointment Apply topically 3 (three) times a day. Active betamethasone dipropionate 0.05 % ointment Active busPIRone (BUSPAR) 7.5 MG tablet Take 1 tablet (7.5 mg total) by mouth nightly at bedtime for 7 days. 7 tablet 5 Active busPIRone (BUSPAR) 5 MG tablet Take 5 mg (1 tablet) in the AM and 2.5 mg (0.5 tablet) in the PM x 5 days than stop Buspar completely. 8 tablet 5 Active LORazepam (ATIVAN) 0.5 MG tablet Take 1 tablet (0.5 mg total) by mouth as needed for anxiety (once daily). 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 17 TRENA (obstructive sleep apnea) 12/30/2016 Anxiety 12/30/2016 Speech disorder 12/30/2016 Bilateral impacted cerumen 09/11/2015 Overview (12/26/2024): Impacted cerumen, bilateral; Note: Date Diagnosed: 09/11/2015 11:52 AM (H61.23) Down syndrome 04/29/2014 Overview (10/27/2021): Down syndrome Contact dermatitis and other eczema 04/27/2012 Intertriginous candidiasis 04/01/2012 Seborrheic dermatitis 02/10/2012 Overview (10/18/2014): Dermatitis Non-organic enuresis 01/20/2009 Mitral valve disorder 02/06/2008 Encounters Date Type Department Care Team Description 05/02/2025 3:45 PM EDT Telemedicine [facility] [address] [place] [address] Brisa Sadler MD Anxiety (Primary Dx); Down syndrome 03/27/2025 Refill [facility] [address] [place] [address] Brisa Sadler MD Medication Refill 03/25/2025 Refill [facility] [address] [place] [address] Judi Strickland, directional driller Refill from Last 3 Months Immunizations Immunization Administration Dates Next Due COVID-19 (Pre-06/19) Pfizer Vaccine, mRNA, PF 08/03/2021,10/05/2020,09/14/2020 COVID-19 Moderna Spikevax Vaccine + 06/19/2023 DTaP 01/27/1998, 5,1993,07/06,1993 HPV,quadrivalent 08/27/2007,04/27/2007, 7 Hepatitis A, Unspecified 04/08/2014 Hepatitis B, unspecified formulation 1993, 1993,1993 Hib, unspecified formulation 05/05/1994, 1993,1993,04/27 IPV 01/27/1998, 5,1993,04/27 Influenza Quadrivalent Prese rvative Free IM 05/20/2020 Influenza Quadrivalent w/ Pr eservative IM 06/11/2019 Influenza, Unspecified Formulation 05/26,07/20/2014,04/30/2013,06/10,05/03/2011,07/15/2006 MMR 01/27/1998,05/05/1994 Meningococcal MCV4P 02/20/2012,02/06/2008 Pneumococcal polysaccharide PPSV23 01/09/2017 Td, unspecified formulation 01/12/2005 Tdap 01/09/2017,02/15/2011,02/06/2008 Varicella 12/05/2007,06/21/1995 Family History Medical History Relation Comments Uncoded Family History Father Presbyopi a Uncoded Family History Mother Presbyopi a Relation Status Comments Father Mother Social History Tobacco Use Types Packs/Day [...] Orientation Straight 12/12/2024 11 :30 AM EDT Last Filed Vital Signs Vital Sign Reading Time Taken Comments Blood Pressure 123/69 12/26/2024 3:03 PM EDT Pulse 96 12/26/2024 3:03 PM EDT Temperature 35.7 C (96.3 F) 12/26/2024 3:03 PM EDT Respiratory Rate 18 12/26/2024 3:03 PM EDT Oxygen Saturation 100% 12/26/2024 3:03 PM EDT Inhaled Oxygen Concentration - - Weight 40.2 kg (88 lb 9.6 oz) 12/26/2024 3:03 PM EDT Height 136.2 cm (4' 5.62 ) 12/26/2024 3:03 PM ED T Body Mass Index 21.66 12/26/2024 3:03 PM EDT Plan of Treatment Upcoming Encounters Date Type Department Care Team (Late st Contact Info) Description 07/29/2025 7:00 PM EST Procedure visit [facility] Sleep Lab Home Sleep Apnea Testing Program [address] [facility] 2nd [place] [address] Lucio Ureña MD [address] [place] [phone] [email or web address] 11/07/2025 3:45 PM EDT Telemedicine [address] [address] Brisa Sadler MD [address] [place] [phone] [email or web address] 01/22/2026 3:00 PM EDT Nutrition [facility] Medical Genetics [address] [place] [address], [address] [address] Rich Miles MD, MPH [address] [place] [address] [email or web address] [email or web address] Simin Snyder LDN [address] [place] [phone] [email or web address] 01/22/2026 4:00 PM EDT Office Visit [facility] Medical [address], [address] [place] [address] Rich Miles MD, MPH [address] [facility] [address] [email or web address] 01/22/2026 4:00 PM EDT Social Work [facility] Social Service Department [address] [place] [address] Rich Miles MD, MPH [address] [place] [address] [email or web address] [address] [place] [phone] [email or web address] Health Maintenance Due Date Last Done Comments DEPRESSION SCREENING 2005 HEPATITIS C SCREENING 2011 HIV ONE-TIME SCREENING (18-65 YEARS) 2011 PAP SMEAR 2014 TSH LEVEL 12/06/2024 12/07/2023, 01/27, 02/15/2011, Additional history exists INFLUENZA VACCINE (#1) 2025 , 05/20/2020, 06/11/2019, Additional history exists COVID-19 VACCINE (2024- season) 2025 06/19/2023, 08/03/2021, 10/05/2020, Additional history exists Adult Td,Tdap Booster 01/09/2027 01/09/2017 , 02/15/2011, 02/06/2008, Additional history exists HIB VACCINES Completed 05/05/1994, 08/28, 1993, Additional history exists MENINGOCOCCAL VACCINES (ACWY) Aged Out 02/20/2012, 02/06/2008 No longer eligibl e based on patient's age to complete this topic HEPATITIS A VACCINES Aged Out 04/08/2014 No long er eligible based on patient's age to complete this topic PNEUMOCOCCAL VACCINES (0-49 years) Aged Out 01/09/2017 No longer eligible based on patient's age to complete this topic SMOKING STATUS SCREENING (Once After 26 Yrs) Completed 05/02/2025 MENINGOCOCCAL VACCINES (B) Aged Out N o longer eligible based on patient's age to complete this topic Medical Devices Not on file Procedures Procedure Name Priority Date/Time Associated Diagnosis Comments TSH Routine 12/07/2023 1:17 PM EDT Down syndrome Other specified hypothyroidism from Last 3 Months or Most Recently Relevant to Health Maintenance Results * TSH (12/07/2023 1:17 PM EDT) TSH 4.38 0.40 - 5.00 uIU/mL [facility] 12/07/2023 1:17 PM EDT 12/07/2023 4:32 PM EDT us Rich Miles MD, MPH LAB BLOOD ORDERABLES Final Result [address] [id number] from Last 3 Months or Most Recently Relevant to Health Maintenance Insurance MEDICARE PART A & B [facility]IC[facility] PART A & B [place] B HEALTH MEDICARE PART A & [place] [facility] [employer] MEDIC[employer] PART A & B HEALTH Advance Directives For more information, please contact: [phone] (9AM - 5PM [facility], Monday-Monday) Documents on File Type Date Recorded Patient Circular Clerk Expl anation Legal Guardianship 10/06/2020 10:05 AM Care Teams Sales Mgr Relationship Specialty Start Date End Date Therese Godoy MD [address] [place] [phone] PCP - General Family Medicine 05/09/18 Additional Source Comments The information contained in this document represents components of the legal health record. It is not the complete legal health record.[facility]
--- OUTSIDE RECORDS SUMMARY | 2025-06-19 15:35 | XMS_ITS | Encounter Summary ---
Author Organization [employer] Address [address] [facility] 7t [place] [address] Care Team Providers Care Motorcycle Sales Associate Name Role Phone Therese Godoy MD Primary Care Provider Reason for Visit * Reason Onset Date Comments clarification on script 01/02/2025 Encounter Details Date Type Department Care Team ([facility] st Contact Info) Description 01/02/2025 Telephone [facility] ADULT DENTAL [address] [place], [place] [phone] Zofia Ma DDS [address] [place], [place] [phone] clarification on script Social History Tobacco Use Types Packs/Day Years [...] * Telephone Encounter - Leona Jordan - 01/02/2025 11:37 AM EDT Keri Kang from facility that patient goes to called in stating that clarification is needed for mouthwash. Script has been picked up from the pharmacy. However she states that clarity is needed. Unable to do use up to 14 days Needs specific instructions (use for 14 days e.g) it does notneed to be called back in. Would like to receive a call to explain clarify for their records Dr documented in this encounter Plan of Treatment Upcoming Encounters Date Type Department Care Team (Late st Contact Info) Description 07/16/2025 12:45 PM EST Office Visit [facility] ADULT DENTAL [address] [place] [address] Rachael Lara 08/11/2025 10:30 AM EST Office Visit [facility] CHC MED & PEDS [address] [place] [address] Brisa Fox MD [address] [place] [address] documented as of this encounter Visit Diagnoses Not on filedocumented in this encounter Care Teams Motorcycle Sales Associate Relationship Specialty Start Date End Date Therese Godoy MD [address] [place] [address] PCP - General Family Medicine 07/10/15 06/27/25 documented as of this encounter
--- OUTSIDE RECORDS SUMMARY | 2025-06-19 15:35 | XMS_ITS | Clinical Summary ---
Author Organization [employer] Address [address] [facility] 7t [place] [address] Care Team Providers Care Vice President Name Role Phone Therese Godoy MD Primary Care Provider [phone] Allergies Active Allergy Reactions Criticality Noted Date Comments Bacitracin 10/26/2022 Clindamycin 10/26/2022 Penicillins 08/24/2022 Sulfa Antibiotics 10/26/2022 Sulfamethoxazole 10/26/2022 Trimethoprim 10/26/2022 Medications Carboxymethylce llul-Glycerin (Refresh Relieva) 0.5-0.9 % solutionIndicat ions:Redness of left eye 1 drop in each eye 3 times a day. 10 mL 09/09/19 23 Active Additional Information Patient not taking.Reported on 11/08/2023 tacrolimus (Protopic) 0.1 % ointment 09/26/19 23 Active nystatin (Mycostatin) 865973 UNIT/GM powder Apply topically every 12 (twelve) hours. Active mupirocin (Bactroban) 2 % ointment 07/05/20 22 Active mineral oil external liquid 8 gtt every evening in both ears for cerumen impaction Active ketoconazole (NIZOral) 2 % shampoo 09/26/19 23 Active Merkel-Smoothe/F S Scalp 0.01 % scalp oil 10/12/19 23 Active betamethasone dipropionate (Diprolene) 0.05 % ointment 03/14/20 23 Active busPIRone (Buspar) 7.5 MG tablet Take by mouth 2 times daily. Active psyllium (Metamucil) 0.36 g capsule Take 6 capsules by mouth Once per day. Active LORazepam (Ativan) 0.5 MG tablet Take 1 tablet (0.5 mg) by mouth 1 (one) time for 1 dose. 1 tablet 04/01/20 25 Active Pediatric Multiple Vitamins (Childrens Chew Multivitamin) chewable tabletIndicatio ns:Macrocytosis without anemia Chew 1 tablet Once per day. 30 tablet 10 06/10/20 25 Active levothyroxine (Synthroid, Levoxyl) 25 MCG tabletIndicatio ns:Hyperthyroid ism Take 1 tablet (25 mcg) by mouth before breakfast. 90 tablet 3 06/10/20 25 2025 Active fluticasone (Flonase) 50 MCG/ACT nasal sprayIndication s:Left ear pain Administer 1 spray into each nostril Once per day. 16 g 11 06/10/20 25 Active cholecalciferol (Vitamin D-3) 25 MCG (1000 UT) capsuleIndicati ons:Macrocytosi s without anemia TAKE 1 CAPSULE BY MOUTH EVERY DAY 30 capsule 11 06/10/20 25 Active fluticasone (Flonase) 50 MCG/ACT nasal spray Administer 1 spray into each nostril in the morning. 16 g 11 12/07/19 23 2024 Discontinued(R eorder (will not trigger notification to Pharmacy)) levothyroxine (Synthroid, Levoxyl) 25 MCG tablet Take 1 tablet (25 mcg) by mouth before breakfast. 90 tablet 3 06/24/20 24 2024 Discontinued(R eorder (will not trigger notification to Pharmacy)) cholecalciferol (Vitamin D-3) 25 MCG (1000 UT) capsule TAKE 1 CAPSULE BY MOUTH EVERY DAY 30 capsule 11 08/08/20 24 2024 Discontinued(R eorder (will not trigger notification to Pharmacy)) Pediatric Multiple Vitamins (Childrens Chew Multivitamin) chewable tabletIndicatio ns:Macrocytosis without anemia CHEW 1 TABLET BY MOUTH DAILY 30 tablet 10 11/29/19 25 2024 Discontinued(R eorder (will not trigger notification to Pharmacy)) Active Problems Problem Noted Date Diagnosed Date Left ear pain 11/01/2024 Acute otitis externa of left ear 11/01/2024 Assessment & Plan (11/01/2024 4:21 PM EST): Rx as written below Return to clinic for failure to improve Paperwork completed Hold mineral oil drops while topical abx are precribed Hyperthyroidism 11/13/2020 Overview (10/27/2022): TSH 0.05 in 09/2020, started on Methimazole 5mg by burrer operator Down syndrome 04/29/2014 Overview (10/27/2022): Down syndrome Encounters Date Type Department Care Team Description 06/18/2025 Telephone [facility] MEDICINE [address] [place] [address] Therese Godoy MD Call Back Request 06/10/[address] [address] Therese Godoy MD Referral 06/10/2025 Refill [facility]ED[facility] [address] [place] [address] Therese Godoy MD Macrocytosis without anemia; Left ear pain; Hyperthyroidism 05/02/2025 9:15 AM EDT Office Visit [facility] [address] [place] [address] Therese Godoy MD Absence seizure with automatisms (CMS/HCC) (Primary Dx) 05/02/2025 Travel 05/01/2025 Telephone [facility] [address] [place] [address] Therese Godoy MD Chart prep 04/02/2025 Results Follow-Up [facility] [address] [place] [address] Therese Godoy MD MR Brain w/o Contrast 03/31/2025 Telephone [facility] MEDICINE [address] [place] [address] [phone] Therese Godoy MD Medication Question 03/28/2025 Telephone [facility] [address] [place] [address] Therese Godoy MD Durable Medical Equipment 03/28/2025 Telephone [facility] [address] [place] [address] [phone] Therese Godoy MD 03/27/2025 Telephone [facility] [address] [place] [address] Therese Godoy MD Results 03/26/2025 10:30 AM EDT Office Visit [facility] [address] [place] [address] Therese Godoy MD Absence seizure with automatisms (CMS/HCC) (Primary Dx); Hyperthyroidism 03/26/2025 Travel 03/26/2025 Telephone [facility] [address] [place] [address] Therese Godoy MD Nurse Triage from Last 3 Months Immunizations Immunization Administration Dates Next Due DTaP 01/27/1998, 5,1993,07/06,1993 HPV, Quadrivalent 08/27/2007,04/27/2007,02/22/20 07 Hep A, Adult 04/08/2014 Hep A, Unspecified 04/08/2014 Hep B, Unspecified 1993,1993, 993 HiB, unspecified 05/05/1994, 4,1993,04/27 IPV 01/27/1998, 5,1993,04/27 Influenza injectable quadriv alent IIV4 with preservative 05/14/2015 Influenza, seasonal, injecta ble, preservative free 05/26/2024 MMR 01/27/1998,05/05/1994 Meningococcal MCV4P ACYW-135 02/20/2012,02/06/20 08 Pneumococcal Conjugate PCV 20 01/28/2025 Pneumococcal Polysaccharide PPSV23 01/09/2017 Td (adult), unspecified 01/12/2005 Tdap 01/09/2017,02/15/2011,02/06/2008 Varicella 12/05/2007,06/21/1995 Social History Tobacco Use Types Packs/Day Years Used Date Smoking Tobacco: Never Smokeless Tobacco: Never Tobacco Cessation:Counseling Given: Not Answered Housing Stability Answer Date Recorded What is your housing situation today? I have maritza le 05/02/[address] you [...] Orientation Straight 06/27/2022 10 :28 AM EDT Last Filed Vital Signs Vital Sign Reading Time Taken Comments Blood Pressure 125/74 05/02/2025 9:28 AM EDT Pulse 77 05/02/2025 9:28 AM EDT Temperature 36.5 C (97.7 F) 05/02/2025 9:28 AM EDT Respiratory Rate 20 05/02/2025 9:28 AM EDT Oxygen Saturation 99% 03/26/2025 10:50 AM EDT Inhaled Oxygen Concentration - - Weight 39.6 kg (87 lb 3.2 oz) 05/02/2025 9:28 AM EDT Height 134.6 cm (4' 5 ) 05/02/2025 9:28 AM EDT Body Mass Index 21.83 05/02/2025 9:28 AM EDT Plan of Treatment Upcoming Encounters Date Type Department Care Team (Late st Contact Info) Description 07/16/2025 12:45 PM EST Office Visit [facility] ADULT DENTAL [address] [place] [address] Rachael Lara 08/11/2025 10:30 AM EST Office Visit [facility]C MED & PEDS [address] [place] [address] Brisa Fox MD [address] [place] [address] Health Maintenance Due Date Last Done Comments Dental X-Ray: Bitewings 1993 Depression Screening 1993 HIV Screening 1993 Family Planning (PISQ) 01/16/2008 Hepatitis C Screening 2011 Pap Smear 2014 HPV/Cotest 2023 Influenza Vaccine (#1) 2025 , 06/05/2023, 06/08/2022, Additional history exists Dental Oral Exam 07/05/2025 01/01/2025, , 11/08/2023, Additional history exists Dental Prophylaxis 07/05/2025 01/01/2025, 0 05/14/2024, 11/08/2023, Additional history exists Disability Screening 08/08/2025 08/08/2024 Alcohol/Substance Use Screening 05/02/2026 05/02/2025 SDOH Screening 05/02/2026 05/02/2025 Tobacco Screening 05/02/2026 05/02/2025 DTaP/Tdap/Td Vaccines (9 - Td or Tdap) 01/09/2027 01/09/2017, 02/15/2011, 02/06/2008, Additional history exists Dental X-Ray: Full Mouth 05/15/2027 05/14/2024 Zoster Vaccines (1 of 2) 2043 RSV Patients and Patients Aged 60 years or older (1 - 1-dose 75+ series) 01/16/2068 Hepatitis B Vaccines Completed 1993, 1993, 1993 HIB Vaccines Completed 05/05/1994, 08/28, 1993, Additional history exists IPV Vaccines Completed 01/27/1998, 08/29, 1993, Additional history exists HPV Vaccines Completed 08/27/2007, 03/30, 02/21/2007 Meningococcal Vaccine Aged Out 02/20/2012, 008 No longer eligible based on patient's age to complete this topic Hepatitis A Vaccines Aged Out 04/08/2014, 04/08/20 14 No longer eligible based on patient's age to complete this topic COVID-19 Vaccine Completed 06/01/2024, , 07/19/2022, Additional history exists Pneumococcal Vaccine: Pediatrics (0 to 5 Years) and At-Risk Patients (6 to 49) Years Aged Out 01/28/2025, 01/09/2017 No longer eligibl e based on patient's age to complete this topic Cervical Cancer Screening Discontinued Meningococcal B Vaccine Aged Out No l onger eligible based on patient's age to complete this topic RSV under 20 months Aged Out No longe r eligible based on patient's age to complete this topic Rotavirus Vaccines Aged Out No longer eligible based on patient's age to complete this topic Procedures Procedure Name Priority Date/Time Associated Diagnosis Comments MR BRAIN WO CONTRAST Routine 04/01/2025 3:32 PM EDT Absence seizure with automatisms (CMS/HCC) TSH W/REFLEX TO FT4 Routine 03/26/2025 1 1:21 AM EDT Hyperthyroidism PROPHYLAXIS - ADULT Routine 01/01/2025 3 :00 PM EDT Dental calculus 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 Dental plaque PERIODIC ORAL EVALUATION - ESTABLISHED PATIENT Routine 01/01/2025 3:00 PM EDT Encounter for dental examination Dental calculus 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 PANORAMIC RADIOGRAPHIC IMAGE Routine 05/14/2024 9:00 AM EDT from Last 3 Months or Most Recently Relevant to Health Maintenance Results * MR Brain w/o Contrast (04/01/2025 3:32 PM EDT) Anatomical Region Laterality Modality Brain Magnetic Resonan ce 04/01/2025 3:32 PM EDT Narrative 04/01/2025 4:11 PM EDT [address] [address] Magnetic Resonance Report Signed Patient: Ginny Perez MR#: [id number] : 1995 Acct:[id number] Age/Sex: 30 / F ADM Date: 04/01/25 Loc: HO.MRI Attending Dr: Therese Godoy MD Ordering Physician: Therese Godoy MD Date of Service: 04/01/25 Procedure(s): MR head/brain wo con Accession Number(s): [id number] cc: Therese Godoy MD EXAMINATION: MR BRAIN WITHOUT CONTRAST CLINICAL INFORMATION: Seizures COMPARISON: No prior MRI. CT head 09/25/2024. TECHNIQUE: MRI of the brain was obtained using routine sequences without contrast. Exam performed on a 1.5 Barbara Siemens high-field unit. FINDINGS: There is no diffusion restriction. There is no intracranial hemorrhage, acute infarction, mass effect, or edema. Ventricles, sulci, and cisterns are normal in size and configuration for patient age. No shift of midline. No abnormal hemosiderin deposition is identified. There are no focal white matter signal abnormalities. There is no hippocampal atrophy. There is no heterotopic burris matter or cortical dysplasia. Midline structures appear normally formed. The pituitary gland appears normal. Posterior fossa structures appear normal. Cerebellar tonsils are appropriately located. Major flow voids are preserved within the skull base. The globes and orbital contents demonstrate no abnormalities. Paranasal sinuses are clear bilaterally. Nasal septum is midline without spur. The mastoids and tympanic cavities are normally aerated. Extracranial soft tissues demonstrate no abnormalities. No suspicious bone marrow changes are evident. Atlantoaxial joint is normal. MR/MR head/brain wo con IMPRESSION: 1. No evidence of intracranial hemorrhage, acute infarction, mass effect, or edema. Normal MRI of the brain. Electronically signed by: Sandor Campbell MD 04/01/2025 04:08 PM EDT Dictated By: Sandor Campbell MD Signed By: <Electronically signed by Sandor Campbell MD in OV> 04/01/25 1608 DD/ 1532 TD/TT: 04/01/25 1549 Appliance Painter And Refinisher: Procedure Note Donotuseinterpreter, Image - 04/01/[address] [address] Magnetic Resonance Report Signed Patient: Whitney Perez#: [id number] : 1995Acct:[id number] Age/Sex: 30 / FADM Date: 04/01/25 Loc: HO.MRI Attending Dr: Therese Godoy MD Ordering Physician: Therese Godoy MD Date of Service: 04/01/25 Procedure(s): MR head/brain wo con Accession Number(s): [id number] cc: Therese Godoy MD EXAMINATION: MR BRAIN WITHOUT CONTRAST CLINICAL INFORMATION: Seizures COMPARISON: No prior MRI. CT head 09/25/2024. TECHNIQUE: MRI of the brain was obtained using routine sequences without contrast. Exam performed on a 1.5 Barbara Siemens high-field unit. FINDINGS: There is no diffusion restriction. There is no intracranial hemorrhage, acute infarction, mass effect, or edema. Ventricles, sulci, and cisterns are normal in size and configuration for patient age. No shift of midline. No abnormal hemosiderin deposition is identified. There are no focal white matter signal abnormalities. There is no hippocampal atrophy. There is no heterotopic burris matter or cortical dysplasia. Midline structures appear normally formed. The pituitary gland appears normal. Posterior fossa structures appear normal. Cerebellar tonsils are appropriately located. Major flow voids are preserved within the skull base. The globes and orbital contents demonstrate no abnormalities. Paranasal sinuses are clear bilaterally. Nasal septum is midline without spur. The mastoids and tympanic cavities are normally aerated. Extracranial soft tissues demonstrate no abnormalities. No suspicious bone marrow changes are evident. Atlantoaxial joint is normal. MR/MR head/brain wo con IMPRESSION: 1. No evidence of intracranial hemorrhage, acute infarction, mass effect, or edema. Normal MRI of the brain. Electronically signed by: Sandor Campbell MD 04/01/2025 04:08 PM EDT Dictated By: Sandor Campbell MD Signed By: <Electronically signed by Sandor Campbell MD in OV> 04/01/25 1608 DD/ 1532 TD/TT: 04/01/25 1549 Appliance Painter And Refinisher: Therese Godoy MD IMG MRI PROCEDURES Edited Result - Final * TSH with Reflex to Free T4 (03/26/2025 11:21 AM EDT) TSH reflex Free T4 1.33 0.32 - 4.0 uIU/mL [facility] Blood Venous blood specimen / Unknown 03/26/2025 11:21 AM EDT 03/26/2025 2:25 PM EDT us Therese Godoy MD LAB BLOOD ORDERABLES Final Resul t [facility] [address] [place] [address] [phone] from Last 3 Months Insurance MEDIC[facility] STAND ADULT Care Teams Vice President Relationship Specialty Start Date End Date Therese Godoy MD [address] [place] [id number] PCP - General Family Medicine 07/10/15 06/27/25
--- OUTSIDE RECORDS SUMMARY | 2025-06-19 15:35 | XMS_ITS | Encounter Summary ---
Author Organization [employer] Address [address] [facility] [address] [place] [address] Care Team Providers Care Trim Machine Adjuster Name Role Phone Therese Godoy MD Primary Care Provider [phone] Reason for Visit * Reason Onset Date Comments Call Back Request 06/18/2025 Encounter Details Date Type Department Care Team ([facility] st Contact Info) Description 06/18/2025 Telephone [facility] MEDICINE [address] [place] [address] Therese Godoy MD [address] [place], [place] [phone] Call Back Request Social History Tobacco Use Types Packs/Day Years Used Date Smoking Tobacco: Never Smokeless Tobacco: Never Housing Stability Answer Date Recorded What is your housing situation today? I have maritza rey 05/02/[address] you li [...] encounter Miscellaneous Notes * Telephone Encounter - Magda Reece - 06/18/2025 9:04 AM EDT Tc from saul mom of pt requesting a call back from you. PCP Dr. Godoy [phone] documented in this encounter Plan of Treatment Upcoming Encounters Date Type Department Care Team (Late st Contact Info) Description 07/16/2025 12:45 PM EST Office Visit [facility] ADULT DENTAL [address] [place] [address] Rachael Lara 08/11/2025 10:30 AM EST Office Visit [facility] CHC MED & PEDS [address] [place] [address] Brisa Fox MD [address] [place] [address] documented as of this encounter Visit Diagnoses Not on filedocumented in this encounter Care Teams Trim Machine Adjuster Relationship Specialty Start Date End Date Therese Godoy MD [address] [place] [address] PCP - General Family Medicine 07/10/15 06/27/25 documented as of this encounter
== END 2025-06-19 13:12 | disposition home or self-care (01) ==
LOC: HO.HSM 12:27
PROVIDERS: PCP Student in an Organized Health Care Education/Training Program; Visit Provider Psychiatry & Neurology Neurology
DX: G40.209 Localization-related (focal) (partial) symptomatic epilepsy and epileptic syndromes with complex partial seizures, not intractable, without status epilepticus (principal); Q90.9 Down syndrome, unspecified
CPT/HCPCS: 99204

== ENCOUNTER → 2025-06-19 12:26 | Outpatient (BNVA) | payer MEDICARE, MEDICAID, SELFPAY | PROVIDERS: PCP Student in an Organized Health Care Education/Training Program; Visit Provider Psychiatry & Neurology Neurology | DX: G40.209 Localization-related (focal) (partial) symptomatic epilepsy and epileptic syndromes with complex partial seizures, not intractable, without status epilepticus (principal); Q90.9 Down syndrome, unspecified | CPT/HCPCS: 99202 ==

== ENCOUNTER 2025-07-07 13:03 | Outpatient (REF) | payer MEDICARE, MEDICAID, SELFPAY ==
--- NOTE | 2025-07-07 14:33 | EEG_ITS ---
Reason for Exam: G40.209 Complex partial seizure History: sleep apnea, down syndrome, hypothyroidism, graves disease, hyperthyroidism - Patient is presenting with unresponsiveness and potential seizures. Reports indicate that the episodes began in March, characterized by unresponsive states lasting about an hour, accompanied by automatic chewing and biting movements. Initially presumed linked to a medication, these events occurred again without the medication, suggesting an alternative etiology. Medications: betamethasone dipropionate, fluocinolone, fluticasone propionate, levothyroxine, mupirocin, nystatin, tacrolimus Technical Description Photic Stimulation: completed Hyperventilation: omitted Behavioral State: pleasant, would not close eyes State of Consciousness: awake Skull Defect: none Sedation: none Handedness: right Duration: 31 min 48 sec Description: This is a 16 channel EEG with an EKG lead. Patient is awake during the tracing. Background EEG rhythm mostly is low to medium amplitude mixed theta beta. Photic stimulation does not produce any significant driving. Hyperventilation is not performed. Rare left occipital sharp waves are noted. Cardiac lead does not reveal any significant abnormality. Impression: Mildly abnormal EEG suggestive of left hemispheric irritability. MTDD
--- OUTSIDE RECORDS SUMMARY | 2025-07-07 15:12 | XMS_ITS | Encounter Summary ---
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) Social History [...] Care Team (Late st Contact Info) Description 08/11/2025 10:30 AM EST Office Visit [facility] MED & PEDS [address] [place] [address] Brisa Fox MD [address] [place] [address] 08/15/2025 9:30 AM EST Office Visit [facility] ADULT DENTAL [address] [place] [address] Rachael Lara documented as of this encounter Visit Diagnoses Diagnosis Macrocytosis without anemia- Primary Other specified diseases of blood and blood-forming organs documented in this encounter Care Teams Content Creation Manager Relationship Specialty Start Date End Date Therese Godoy MD [address] [place] [address] PCP - General Family Medicine 07/10/15 06/27/25 Brisa Fox MD [address] [place] [address] PCP - General Family Medicine 06/28/25 documented as of this encounter
--- OUTSIDE RECORDS SUMMARY | 2025-07-07 15:12 | XMS_ITS | Encounter Summary ---
Author Organization [employer] Address [address] [facility] 7t [place] [address] Care Team Providers Care Band Saw Filer Name Role Phone Therese Godoy MD Primary Care Provider [phone] Brisa Fox MD Primary Care Provider Reason for Visit * Reason Onset Date Comments Referral 09/14/2023 Encounter Details Date Type Department Care Team ([facility] st Contact Info) Description 09/14/2023 Telephone [facility]S [address] [place], [place] [phone] Therese Godoy MD [address] [place] [address] Referral Social History Tobacco Use Types Packs/Day [...] 12:16 PM EST TC from sandip with [facility] requesting a referral to DATE: 09/19/23 TIME: 12pm Location: [address] [place] [address] Facility: [facility] Type of Specialist: Speech Any questions may contact sandip at [phone] ext [phone] documented in this encounter Plan of Treatment Upcoming Encounters Date Type Department Care Team (Late st Contact Info) Description 08/11/2025 10:30 AM EST Office Visit [facility] CHC MED & PEDS [address] [place] [address] Brisa Fox MD [address] [place] [address] 08/15/2025 9:30 AM EST Office Visit [facility] ADULT DENTAL [address] [place] [address] Rachael Lara documented as of this encounter Visit Diagnoses Not on filedocumented in this encounter Care Teams Band Saw Filer Relationship Specialty Start Date End Date Therese Godoy MD [address] [place] [address] PCP - General Family Medicine 07/10/15 06/27/25 Brisa Fox MD [address] [place] [address] PCP - General Family Medicine 06/28/25 documented as of this encounter
--- OUTSIDE RECORDS SUMMARY | 2025-07-07 15:12 | XMS_ITS | Encounter Summary ---
Author Organization [employer] Address [address] [facility] 7 [place] [address] Care Team Providers Care Music Researcher Name Role Phone Therese Godoy MD Primary Care Provider [phone] Brisa Fox MD Primary Care Provider [phone] Encounter Details Date Type Department Care Team (Latest Contact Info) Description 09/05/2018 Abstract [facility] CONVERSIONS Dental, Provider, DDS Social History [...] Description 08/11/2025 10:30 AM EST Office Visit [facility] CHC MED & PEDS [address] [place] [address] Brisa Fox MD [address] [place] [address] 08/15/2025 9:30 AM EST Office Visit [facility] ADULT DENTAL [address] [place], [place] [phone] Rachael Lara documented as of this encounter Visit Diagnoses Not on filedocumented in this encounter Care Teams Music Researcher Relationship Specialty Start Date End Date Therese Godoy MD [address] [place] [address] PCP - General Family Medicine 07/10/15 06/27/25 Brisa Fox MD [address] [place] [address] PCP - General Family Medicine 06/28/25 documented as of this encounter
--- OUTSIDE RECORDS SUMMARY | 2025-07-07 15:12 | XMS_ITS | Encounter Summary ---
Author Organization [employer] Address [address] [facility] 7t [place] [address] Care Team Providers Care Directory Operator Name Role Phone Therese Godoy MD Primary Care Provider [phone] Brisa Fox MD Primary Care Provider [phone] Reason for Visit * Reason Onset Date Comments Referral 12/27/2024 Encounter Details Date Type Department Care Team ([facility] st Contact Info) Description 12/27/2024 Telephone [facility] MED[facility]INE [address] [place], [place] [phone] Therese Godoy MD [address] [place], [place] [phone] Referral Social History Tobacco Use Types Packs/Day [...] order after a routine check up at [facility]. Any questions contact pt dad [phone] documented in this encounter Plan of Treatment Upcoming Encounters Date Type Department Care Team (Late st Contact Info) Description 08/11/2025 10:30 AM EST Office Visit [facility] CHC MED & PEDS [address] [place] [address] Brisa Fox MD [address] [place] [address] 08/15/2025 9:30 AM EST Office Visit [facility] ADULT DENTAL [address] [place] [address] Rachael Lara documented as of this encounter Visit Diagnoses Not on filedocumented in this encounter Care Teams Directory Operator Relationship Specialty Start Date End Date Therese Godoy MD [address] [place] [address] PCP - General Family Medicine 07/10/15 06/27/25 Brisa Fox MD [address] [place] [address] PCP - General Family Medicine 06/28/25 documented as of this encounter
--- OUTSIDE RECORDS SUMMARY | 2025-07-07 15:12 | XMS_ITS | Encounter Summary ---
Author Organization [employer] Address [address] [facility] [address] [employer] [address] 7t [place] [address] Care Team Providers Care Family Nurse Name Role Phone Therese Godoy MD Primary Care Provider [phone] Brisa Fox MD Primary Care Provider [phone] Reason for Visit * Reason Onset Date Comments Referral 06/10/2025 Encounter Details Date Type Department Care Team ([facility] st Contact Info) Description 06/10/2025 Telephone [facility] MEDICINE [address] [place] [address] Therese Godoy MD [address] [place], [place] [phone] Referral Social History Tobacco Use Types Packs/Day [...] Sally stated pt need new orthotics Address: [address] [place] [address] Facility Name: [facility] Phone # : Contact Sally at [phone] Ext. [phone] documented in this encounter Plan of Treatment Upcoming Encounters Date Type Department Care Team ([facility] st Contact Info) Description 08/11/2025 10:30 AM EST Office Visit [facility] CHC MED & PEDS 505 [place] [address] Brisa Fox MD [address] [place] [address] 08/15/2025 9:30 AM EST Office Visit [facility] ADULT DENTAL [address] [place] [address] Rachael Lara documented as of this encounter Visit Diagnoses Not on filedocumented in this encounter Care Teams Family Nurse Relationship Specialty Start Date End Date Therese Godoy MD [address] [place] [address] PCP - General Family Medicine 07/10/15 06/27/25 Brisa Fox MD [address] [place] [address] PCP - General Family Medicine 06/28/25 documented as of this encounter
--- OUTSIDE RECORDS SUMMARY | 2025-07-07 15:12 | XMS_ITS | Encounter Summary ---
Author Organization [employer] Address [address] [facility] 7t [place] [address] Care Team Providers Care Inside Account Executive Name Role Phone Therese Godoy MD Primary Care Provider Brisa Fox MD Primary Care Provider [phone] Encounter Details Date Type Department Care Team ([facility] st Contact Info) Description 09/25/2024 Telephone [facility] CHC MED & PEDS [address] [place], [place] [phone] Therese Godoy MD 505 [place] [address] Social History Tobacco Use Types Packs/Day Years [...] deal of time explaining to this ad writer her frustrations with our healthcare system. She was sent the link to sign up for [employer] and advised this will allow results to [...] from pt mother requesting to speak to mobile product manager Susannah. Mom would like to discuss health care concerns and possibly switching providers Contact pt mother An at [phone] documented in this encounter Plan of Treatment Upcoming Encounters Date Type Department Care Team ([facility] st Contact Info) Description 08/11/2025 10:30 AM EST Office Visit [facility] CHC MED & PEDS [address] [place] [address] Brisa Fox MD [address] [place] [address] 08/15/2025 9:30 AM EST Office Visit [facility] ADULT DENTAL [address] [place] [address] Rachael Lara documented as of this encounter Visit Diagnoses Not on filedocumented in this encounter Care Teams Inside Account Executive Relationship Specialty Start Date End Date Therese Godoy MD 230 [place] [address] PCP - General Family Medicine 07/10/15 06/27/25 Brisa Fox MD [address] [place] [address] PCP - General Family Medicine 06/28/25 documented as of this encounter
--- OUTSIDE RECORDS SUMMARY | 2025-07-07 15:12 | XMS_ITS | Encounter Summary ---
Author Organization [employer] Address [address] [facility] 7t [place] [address] Care Team Providers Care Coal Cager Name Role Phone Therese Godoy MD Primary Care Provider [phone] Brisa Fox MD Primary Care Provider [phone] Encounter Details Date Type Department Care Team ([facility] st Contact Info) Description 01/11/2024 Abstract [facility] CHC MED & PEDS [address] [place] [address] Susannah Vargas, RN [address] [place] [address] Social History Tobacco Use Types Packs/Day Years [...] Description 08/11/2025 10:30 AM EST Office Visit [facility] CHC MED & PEDS [address] [place] [address] Brisa Fox MD [address] [place] [address] 08/15/2025 9:30 AM EST Office Visit [facility] ADULT DENTAL [address] [place] [address] Rachael Lara documented as of this encounter Visit Diagnoses Not on filedocumented in this encounter Care Teams Coal Cager Relationship Specialty Start Date End Date Therese Godoy MD [address] [place] [address] PCP - General Family Medicine 07/10/15 06/27/25 Brisa Fox MD [address] [place] [address] PCP - General Family Medicine 06/28/25 documented as of this encounter
--- OUTSIDE RECORDS SUMMARY | 2025-07-07 15:12 | XMS_ITS | Data Portability ---
Author Organization [place] - [facility], Allergy Address [address] [address] Care Team Providers Care Staff Accountant Name Role Phone KAMILLA DAVIS Primary Care Provider KAMILLA DAVIS Referring Provider Assessment Encounter Date Assessment Date Assessment LastModified by Organization Details LastModified Time 06/13/2024 06/13/2024 On examination today the right sided otitis externa has resolved. Impacted cerumen was debrided from the left ear today. Audiometric testing could not be completed today due to patient cooperation and interest. We will plan on a repeat ear cleaning in three months and can consider trying again for an audiogram in the spring. Mom is comfortable with this plan. [email or web address] Not available 06/13/2024 12:18:17 12/24/2024 12/24/2024 Follow up with referring provider. [email or web address] Not available 12/24/2024 14:56:43 12/24/2024 12/24/2024 Cerumen was removed completely and tolerated well. No evidence of infection. Audiometric testing was performed showing a high-frequency loss on the left which is stable to previous testing. There is good hearing in the speech frequencies. Would recommend recheck in about a year. [email or web address] Not available 12/25/2024 07:39:44 04/03/2025 04/03/2025 Cerumen was removed completely and tolerated well. No evidence of infection. Hearing recheck next spring. [email or web address] Not available 04/05/2025 16:59:14 Plan of Treatment Reminders Order Date Submit Date Provider Last Modified By Organization Details Last Modified Time Details Appointments Establish ed 15 2024 02:00P M MANNY ALBARADO MD Not available Not available Not available Lab None recorded. Referral None recorded. Procedures None recorded. Surgeries None recorded. Imaging None recorded. Medication Orders None recorded. Patient TargetsNo targets recorded. Patient InstructionsNo instructions recorded. Reason for Referral None Reported. Results Created Date Observation Date Name Description Value Unit Range Abnormal Flag Note LastModifiedBy Organization Detail LastModifiedTime 06/13/20 24 audio gram No observ ation record ed. BARCODE Not Available 2023 16:01:01 12/25/19 25 audio gram No observ ation record ed. BARCODE Not Available 2024 16:15:09 Result Notes None recorded. Problems Name Problem SNOMED Code Status Onset Date Resolution Date Notes Provider Name and Address Organization Details Recorded Time Impacted cerumen of bilateral ears 63081251001 16207 Active 2015 Impacted cerumen, bilateral ; Note: Date Diagnosed : 09/11/2015 11:52 AM (H61.23) MANNY ALBARADO MD [address] [place] [address], [place], [address] [facility] 5 07:38:18 Down's syndrome NOS Active 2015 Down syndrome, unspecifi ed; Note: Date Diagnosed : 03/21/2016 4:17 PM (Q90.9) Not Available [facility] 4 02:19:46 Conductiv e hearing loss of right ear 1426548508 Active 2017 Conductiv e hearing loss, unilatera l, right ear with restricte d hearing on the contralat eral side; Note: Date Diagnosed : 01/29/2018 5:48 PM (H90.A11) Not Available [facility] 4 02:19:23 Mixed conductiv e and sensorine ural hearing loss of left ear 25524744400 107 Active 2017 Mixed conductiv e and sensorine ural hearing loss, unilatera l, left ear with restricte d hearing on the contralat eral side; Note: Date Diagnosed : 01/29/2018 5:48 PM (H90.A32) Not Available [facility] 4 02:19:29 Snoring 40266077 Active 2018 Snoring; Note: Date Diagnosed : 09/03/2018 3:48 PM (R06.83) Not Available [facility] 4 02:19:27 Impacted cerumen 14346179 Active 2019 Impacted cerumen; Note: Date Diagnosed : 01/14/2020 3:35 PM (380.4) Not Available [facility] 4 02:19:35 Sensorine ural hearing loss of bilateral ears 854783593 Active 2020 Sensorine ural hearing loss, bilateral ; Note: Date Diagnosed : 10/30/2020 3:40 PM (H90.3) Not Available [facility] 4 02:19:30 Otorrhea of bilateral ears 11886911991 15571 Active 2021 Otorrhea, bilateral ; Note: Date Diagnosed : 12/03/2021 5:20 PM (H92.13) Not Available [facility] 4 02:20:00 Obstructi ve sleep apnea syndrome 48344576 Active 2022 Obstructi ve sleep apnea (adult) (pediatri c); Note: Date Diagnosed : 04/24/2023 11:49 AM (G47.33) Obstruc tive sleep apnea (adult) (pediatri c); Note: Date Diagnosed : 09/11/2015 11:54 AM (G47.33) ; Start Date : 6 Not Available [facility] 4 02:19:28 Common cold 21586276 Active 2023 Acute nasophary ngitis [common cold]; Note: Date Diagnosed : 11/07/2023 7:43 AM (J00) Not Available [facility] 4 02:19:37 Acute otitis externa of right ear 87936907033 47593 Active 2023 MANNY ALBARADO MD [address] [place] [address], [place], [address] , [facility] - [facility] 4 11:00:59 Infective otitis externa of right ear 95396388975 51229 Active 2023 MANNY ALBARADO MD [address] [facility],[place] [address], [place], [address] , 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 - [facility] 5 14:58:01 Nasal congestio n 42619016 Active 2024 Olga arellano [facility] 5 10:10:28 Problem Notes None recorded. Procedures Surgical History Date Name Laterality Status Provider Name and Address Organization Details Recorded Time 12/25/19 25 Air & SRT/SAT Audio with Tymps - 10070, 56281 & 33487 completed LISSETTE DEL CID, Natalie [address] [facility],[place] [address], [place], [address], [facility] - [facility] 12/24/2024 14:57:30 06/13/20 24 Tympanometry - 91418 completed YANELIS LOPES [address], [address], [facility] - [facility] 06/13/2024 11:39:27 06/13/20 24 OAE distortion product, comprehensive - 53195 completed YANELIS LOPES [address], [address], [facility] - [facility] 06/13/2024 11:39:32 06/13/20 24 Cerumen removal without microscope left completed Rivka Brown [place] - [facility] 06/13/2024 12:17:14 Imaging Results None recorded. Procedure Notes None recorded. Medical Equipment None Reported. Allergies Allergen ID Allergen Name Allergen Category Reaction Reaction Severity Criticality Documentation Date Start Date Code Code System Note Provider Name and Address Organization Details Recorded Time 762125 clindamyc in Not available Not available Not available Not available 02/08/2024 2582 RxNorm Olga arellano [place] - [facility] 4 13:06:30 503830 adhesive environme nt,medica tion Not available Not available Not available 02/08/2024 Olgadieter arellano [place] - [facility] 4 13:06:47 08728 Bactrim medicatio n other Not available Not available 01/09/2024 43021 9 RxNorm React ion: unkno wn, unspe cifie d;; Not Available [facility] 4 00:51:32 50385 Product containin g penicilli n (product) medicatio n other Not available Not available 01/09/2024 09043 8001 SNOMED React ion: unkno wn, unspe cifie d;; Not Available [facility] 4 00:51:41 54853 Substance with sulfonami de structure and antibacte rial mechanism of action (substanc e) medicatio n other Not available Not available 01/09/2024 24886 8003 SNOMED React ion: unkno wn, unspe cifie d;; Not Available [facility] 4 00:51:41 Medications Name Sig Start Date Stop Date Status Note LastModified by Organization Details LastModified Time Prescript ion - Prior Authoriza tion Request active Script Copy/Natty or Auth^Scr ipt Copy/Natty or Auth_202 27856 Not Available Not Available Not Available neomycin- polymyxin -hydrocor t 3.5 mg/mL-10, 000 unit/mL-1 % ear solution PLACE 3 DROPS INTO THE AFFECTED EAR(S) FOUR TIMES DAILY FOR 7 DAYS active Not Available Not Available No t Available ketoconaz ole 2 % shampoo active Not Available Not Available Not Available Ciloxan 0.3 % eye drops 02/07 completed Medicati on ID: [id number] D uration Value: 5 Brand Name: Ciloxan Send Method: E-Prescr ibed Sub s Allowed: subs OK Speci al Instruct ion: Instill 4 drops twice a day into the affected ear Medi cationGe nericNam e: Ciloxan Medicati on ID: [id number] D uration Value: 5 Brand Name: Ciloxan Send Method: E-Prescr ibed Sub s Allowed: subs OK Speci al Instruct ion: Instill 4 drops twice a day into the affected ear Medi cationGe nericNam e: Ciloxan Not Available Not Available Not Available levothyro xine 25 mcg tablet Take 1 tablet every day by oral route. active Not Available Not Available No t Available Cetaphil Moisturiz ing lotion 2020 active Medicati on ID: [id number] B rand Name: Cetaphil Moisturi zing Sen d Method: E-Prescr ibed Sub s Allowed: subs OK Speci al Instruct ion: APPLY A THIN LAYER TOPICALL Y TO SKIN EVERY MORNING AFTER SHOWERS AND BEDTIME FOR PRURITUS Medicat ionGener icName: Cetaphil Moisturi zing Not Available Not Available Not Available ofloxacin 0.3 % ear drops INSTILL 5 DROPS INTO THE RIGHT EAR 2 TIMES A DAY FOR 10 DAYS DIRECTED active Not Available Not Available No t Available desonide 0.05 % topical ointment 10/19 completed Medicati on ID: [id number] D uration Value: 20 Brand Name: desonide Send Method: E-Prescr ibed Sub s Allowed: subs OK Medic ationGen ericName : desonide Not Available Not Available Not Available mineral oil Take 4 mL every day by miscell. route in the evening for 30 days. 2023 active Not Available Not Available Not Avai lable tacrolimu s 0.1 % topical ointment active Not Available Not Available Not Available metronida zole 0.75 % topical cream active Not Available Not Available Not Available methimazo le 5 mg tablet 02/07 completed Medicati on ID: [id number] B rand Name: methimaz ole Send Method: E-Prescr ibed Sub s Allowed: subs OK Medic ationGen ericName : methimaz ole Medi cation ID: [id number] B rand Name: methimaz ole Send Method: E-Prescr ibed Sub s Allowed: subs OK Medic ationGen ericName : methimaz ole Not Available Not Available Not Available mometason e 0.1 % topical ointment 05/10 completed Medicati on ID: [id number] D uration Value: 30 Brand Name: mometaso ne Send Method: E-Prescr ibed Sub s Allowed: subs OK Medic ationGen ericName : mometaso ne Not Available Not Available Not Available mupirocin 2 % topical ointment APPLY A SMALL AMOUNT TO THE AFFECTED AREA BY TOPICAL ROUTE 3 TIMES PER DAY active Not Available Not Available No t Available alclometa sone 0.05 % topical ointment 05/10 completed Medicati on ID: [id number] D uration Value: 30 Brand Name: alclomet asone Se nd Method: E-Prescr ibed Sub s Allowed: subs OK Medic ationGen ericName : alclomet asone Not Available Not Available Not Available betametha sone dipropion ate 0.05 % topical ointment active Not Available Not Available Not Available fluticaso ne propionat e 50 mcg/actua tion nasal spray,toño pension USE 2 SPRAYS IN EACH NOSTRIL ONCE DAILY I.C. FLONASE 2024 active Not Available Not Available Not Avai lable fluocinol one 0.01 % scalp oil and shower cap active Not Available Not Available Not Available [facility] unit/gram topical powder active Not Available Not Available Not Available chlorhexi dine gluconate 0.12 % mouthwash SWISH AND SPIT 15ML IN MOUTH FOR 30 SECONDS NEEDED FOR UP TO 14 DAYS active Not Available Not Available No t Available Children' s Acetamino phen 160 mg/5 mL oral suspensio n 10/19 completed Medicati on ID: [id number] D uration Value: 6 Brand Name: Children 's Acetamin ophen Se nd Method: E-Prescr ibed Sub s Allowed: subs OK Speci al Instruct ion: TAKE 10 ML BY MOUTH EVERY 6 HOURS FOR 3 DAYS NEEDED FOR PAIN Med icationG enericNa me: Children 's Acetamin ophen Not Available Not Available Not Available Children' s Multivita min chewable tablet chew ONE TABLET DAILY active Not Available Not Available No t Available Vitals Date Recorded Body height Provider Name an d Address Organization Details Last Updated DateTime 09/10/2024 133.35 cm Olga Piedad [place] - [facility] 09/10/2024 14:47:12 Date Recorded Body height Body mass index (BMI) Body weight Provider Name and Address Organization Details Last Updated DateTime 12/24/2024 133.35 cm 21.9 kg/m2 50178.94 g Olga Herbert [place] - [facility] 12/24/2024 14:19:46 Date Recorded Body height Body mass index (BMI) Body weight Provider Name and Address Organization Details Last Updated DateTime 06/13/2024 133.35 cm 22.8 kg/m2 61095.52 g Radha Leger [place] - [facility] 06/13/2024 10:28:23 Social History None recorded. Functional Status None recorded. Mental Status None recorded. Family History Nothing Reported. Medical History Condition Response Sleep Disorder Y Gynecological HistoryNo gynecological history recorded. Obstetrics History GPAL:G 0 P 0 0 0 0 Past Encounters Encounter ID Performer Location Encounter Start Date Encounter Closed Date Diagnosis/Indication Diagnosis SNOMED-CT Code Diagnosis ICD10 Code Diagnosis IMO Codes Diagnosis Note [id number] MANNY ALBARADO MD [facility] on [address] [place] [address] 02/08/2024 12:58:36 02/08/2024 13:39:57 Impacted cerumen of bilateral ears 7704120477 537406 H61.23 Cerumen was removed and tolerated well. Some soft cerumen remaining on the right TM. Had subjective improvemen t. Due for audiogram next visit. Obstructiv e sleep apnea syndrome 39941100 G47.33 Previous sleep study 2022 showed AHI of 6.9 but she was supine throughout the whole test. She previously had a normal sleep study when she was measured with side sleeping and she does sleep with enforced side sleeping. Continue side sleeping and fluticason e. [id number] MANNY ALBARADO MD [facility] on [address] [place] [id number] 05/07/2024 10:06:48 05/07/2024 11:10:52 Infective otitis externa of right ear 1975996850 100024 H60.391 29-year-ol d female presents for ear cleaning. She has been asymptomat ic but exam is consistent with a mild OE on the right. I sent in eardrops.T here is some cerumen remaining medially in the canal on the left.Follo w-up in a month to recheck the ear. Will defer audiogram to that time. Impacted c erumen of bilateral ears 4111404900 847509 H61.23 [id number] RIVKA BROWN PA-C [facility] on [address] [place] [id number] 06/13/2024 10:16:23 06/13/2024 11:49:27 Impacted cerumen in left ear 7926249862 321006 H61.22 Acute otit is externa of right ear 3575688719 873881 H60.501 Complete t risomy 21 syndrome 35344134 Q90.9 [id number] NATALIE MARIA [facility] on [address] [place] [id number] 06/13/2024 11:38:20 06/13/2024 12:56:27 Sensorineural hearing loss of bilateral ears 222621915 H90.3 Audiologic al evaluation results: Tympanomet ry: Right Ear:Type B Left Ear:Type As DPOAE's 1.5-12kHz: Right: Present at 2k-4kHz only all other frequencie s are absentLeft : All frequencie s absent. [id number] MANNY ALBARADO MD [facility] on [address] [place] [address] 09/10/2024 14:44:21 09/10/2024 15:12:24 Impacted cerumen of bilateral ears 5828930818 618729 H61.23 Cerumen, worse on the left, was completely removed bilaterall y. No evidence if infection. Follow up 3 months. Will retry audiometri c testing then. [id number] MANNY ALBARADO MD [facility] on [address] [place] [id number] 12/24/2024 14:03:24 12/24/2024 15:03:29 Sensorineural hearing loss in left ear 4189346007 9109 H90.42 Audiologic al evaluation results: Right ear: Normal hearing Left ear: Moderate high frequency SNHL Tympanomet ry: Right Ear:Type A Left Ear:Type A Impacted c erumen of bilateral ears 3665602713 276807 H61.23 [id number] Natalie CAMPBELL [facility] on [address] [place] [address] 12/24/2024 14:56:22 12/24/2024 16:29:17 Sensorineural hearing loss in left ear 9670714803 9109 H90.42 Audiologic al evaluation results: Right ear: Normal hearing Left ear: Moderate high frequency SNHL Tympanomet ry: Right Ear:Type A Left Ear:Type A [id number] MANNY ALBARADO MD [facility] on [address] [place] [id number] 04/03/2025 15:02:35 04/03/2025 15:15:17 Impacted cerumen of bilateral ears 3523399635 561724 H61.23 [id number] Health Concerns Section Related Observation LastModified by Organization Detai ls LastModified Time None Recorded Concern Status LastModified by Organization Details LastModified Time None Recorded Advance Directives Directive None Recorded Payers Insurance Date Sequence Insurance Name Policy Number Policy Mauricio Covered Member ID Mauricio Member ID Guarantor Name 04/03/2025 1 [place]: [employer] Ginny Perez [id number] Arden Perez 04/03/2025 2 [place] [facility] Ginny Perez [id number] Arden Perez Notes Date Note Type Note Provider Name and Address Organization Details Recorded Time 06/13/2024 text/html ROS as noted in the HPI 29 year old female with Down's Syndrome presents today with her mother for follow up for a right otitis externa and left cerumen impaction, as well as routine audiogram.She has been on ofloxacin drops. No concerns for ear drainage or complaint of ear pain. Mom has no specific concerns about her hearing. Rivka arellano [place] - [facility] 06/13/2024 12:19:05 06/13/2024 text/html Previous testing showed mild SNHL. Checking for changes today. NATALIE MARIA [address] [facility],[address], [address], [facility] - [facility] 06/13/2024 11:42:58 09/10/2024 text/html Since her last visit, she had an ear infection. MANNY ALBARADO MD [address] [facility],[address], [address], [facility] - [facility] 09/11/2024 07:56:24 12/24/2024 text/html No acute concerns today. No pain or drainage, no recent ear infection MANNY ALBARADO MD [address] [facility],[address], [address], [facility] - [facility] 12/25/2024 07:39:59 04/03/2025 text/html No acute concerns today. No pain or drainage, no recent ear infection MANNY ALBARADO MD [address] [facility],[address], [address], [facility] - [facility] 04/05/2025 16:59:25 OBGyn Episode No OBEpisode recorded.
--- OUTSIDE RECORDS SUMMARY | 2025-07-07 15:13 | XMS_ITS | Clinical Summary ---
Author Organization [employer] Address [address] [facility] 7t [place] [address] Care Team Providers Care Cab Station Attendant Name Role Phone Brisa Fox MD Primary Care Provider [phone] Allergies Active Allergy Reactions Criticality Noted Date [...] % ointment 09/26/19 23 Active nystatin (Mycostatin) 352543 UNIT/GM powder Apply topically every 12 (twelve) hours. Active mupirocin (Bactroban) 2 % ointment 07/05/20 22 Active mineral oil external liquid 8 gtt every evening in both ears for cerumen impaction Active ketoconazole (NIZOral) 2 % shampoo 09/26/19 23 Active Devola-Smoothe/F S Scalp 0.01 % scalp oil 10/12/19 [...] in 09/2020, started on Methimazole 5mg by tool and gauge inspector Down syndrome 04/29/2014 Overview (10/27/2022): Down syndrome Encounters Date Type Department Care Team Description 06/26/2025 Telephone [facility] MED & PEDS [address] [place] [address] Therese Godoy MD 06/23/2025 Orders Only [facility] MED & PEDS [address] [place] [address] Therese Godoy MD Down syndrome (Primary Dx) 06/18/2025 Telephone [facility] MEDICINE [address] [place] [address] Therese Godoy MD Call Back Request 06/10/[address] [address] Therese Godoy MD Referral 06/10/2025 Refill [facility] MED & PEDS [address] [place] [address] Therese Godoy MD Macrocytosis without anemia; Left ear pain; Hyperthyroidism 05/02/2025 9:15 AM EDT Office Visit [facility] MED & PEDS [address] [place] [address] Therese Godoy MD Absence seizure with automatisms (CMS/HCC) (Primary Dx); Gait disturbance 05/02/2025 Travel 05/01/2025 Telephone [facility] MED & PEDS [address] [place] [address] Therese Godoy MD Chart prep from Last 3 Months Immunizations Immunization Administration [...] Description 08/11/2025 10:30 AM EST Office Visit [facility] CHC MED & PEDS [address] [place] [address] Brisa Fox MD 505 [place] [address] 08/15/2025 9:30 AM EST Office Visit [facility] ADULT DENTAL [address] [place] [address] Rachael Lara Health Maintenance Due Date Last Done Comments [...] Procedure Name Priority Date/Time Associated Diagnosis Comments PROPHYLAXIS - ADULT Routine 01/01/2025 3 :00 PM EDT Dental calculus 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
--- OUTSIDE RECORDS SUMMARY | 2025-07-07 15:13 | XMS_ITS | Encounter Summary ---
Author Organization [employer] Address [address] [facility] 7t [place] [address] Care Team Providers Care Director Counseling Bureau Name Role Phone Therese Godoy MD Primary Care Provider [phone] Brisa Fox MD Primary Care Provider [phone] Reason for Visit * Reason Onset Date Comments clarification on script 01/02/2025 Encounter Details Date Type Department Care Team ([facility] st Contact Info) Description 01/02/2025 Telephone [facility] ADULT DENTAL [address] [place] [address] Zofia Ma DDS [address] [place] [address] clarification on script Social History Tobacco Use [...] Description 08/11/2025 10:30 AM EST Office Visit [facility] CHC MED & PEDS 505 [place] [address] Brisa Fox MD 505 [place] [address] 08/15/2025 9:30 AM EST Office Visit [facility] ADULT DENTAL [address] [place] [address] Rachael Lara documented as of this encounter Visit Diagnoses Not on filedocumented in this encounter Care Teams Director Counseling Bureau Relationship Specialty Start Date End Date Therese Godoy MD 230 [place] [address] PCP - General Family Medicine 07/10/15 06/27/25 Brisa Fox MD 505 [place] [address] PCP - General Family Medicine 06/28/25 documented as of this encounter
--- OUTSIDE RECORDS SUMMARY | 2025-07-07 15:13 | XMS_ITS | Encounter Summary ---
Author Organization [employer] Address [address] [facility] 7t [place] [address] Care Team Providers Care Pensionholder Information Clerk Name Role Phone Therese Godoy MD Primary Care Provider [phone] Brisa Fox MD Primary Care Provider [phone] Reason for Visit * Reason Onset Date Comments Dr. Llanes discontinue medication 01/03/2025 Encounter Details Date Type Department Care Team ([facility] st Contact Info) Description 01/03/2025 Telephone [facility] ADULT DENTAL [address] [place], [place] [phone] Zofia Ma, VENESSA [address] [place], [place] [phone] Dr. Llanes discontinue medication Social History Tobacco [...] - 01/03/2025 3:27 PM EDT Winsome from [facility] is checking if medication can be discontinued du topatient non cooperative with getting mouthwash into mouth. Needs verification that it can be discontinued. Please call Winsome to verify at [phone] ext [phone] * Telephone Encounter - Jean [...] 10:30 AM EST Office Visit [facility] CHC MED & PEDS 505 [place] [address] Brisa Fox MD 505 [place] [address] 08/15/2025 9:30 AM EST Office Visit [facility] ADULT DENTAL [address] [place] [address] Rachael Lara documented as of this encounter Visit Diagnoses Not on filedocumented in this encounter Care Teams Pensionholder Information Clerk Relationship Specialty Start Date End Date Therese Godoy MD 230 [place] [address] PCP - General Family Medicine 07/10/15 06/27/25 Brisa Fox MD [address] [place] [address] [place] [address] PCP - General Family Medicine 06/28/25 documented as of this encounter
--- OUTSIDE RECORDS SUMMARY | 2025-07-07 15:13 | XMS_ITS | Clinical Summary ---
Author Organization [facility] Address [address] [place] [address] Phone Care Team Providers Care Nanofabrication Specialist Name Role Phone Therese Godoy MD Primary Care Provider [phone] Allergies Active Allergy Reactions Criticality Noted Date [...] in 09/2020, started on Methimazole 5mg by gunner's mate m Sensorineural hearing loss (SNHL) of both ears [...] Team Description 05/02/2025 3:45 PM EDT Telemedicine [place] [phone] Brisa Sadler MD Anxiety (Primary Dx); Down syndrome from Last 3 Months Immunizations Immunization Administration [...] Description 07/29/2025 7:00 PM EST Procedure visit [facility] Sleep Lab Home Sleep Apnea Testing Program [address]nd [place] [address] Lucio Ureña MD [address] [place] [address] [email or web address] 11/07/2025 3:45 PM EDT Telemedicine [facility] 1 [place] [address] Brisa Sadler MD [address] [place] [address] [email or web address] 01/22/2026 3:00 PM EDT Nutrition [facility] Medical Genetics [address] [place] [address], [address] [place] [address] Rich Miles MD, MPH [address] [place] [address] [email or web address] Simin Snyder LDN [address] [place] [address] [email or web address] 01/22/2026 4:00 PM EDT Office Visit [facility] Medical Genetics [address] [place] [address], [address] [place] [address] Rich Miles MD, MPH [address] [place] [address] [email or web address] 01/22/2026 4:00 PM EDT Social Work [facility] Social Service Department [address] [place] [address] Rich Miles MD, MPH [address] [place] [address] (work) [email or web address] Keri Hatch [address] [place] [phone] [email or web address] Health Maintenance Due Date Last Done Comments DEPRESSION SCREENING 2005 HEPATITIS C SCREENING 2011 HIV ONE-TIME SCREENING (18-65 YEARS) 2011 PAP SMEAR 2014 TSH LEVEL 12/06/2024 12/07/2023, 01/27, 02/15/2011, Additional history exists INFLUENZA VACCINE (#1) 2025 , 05/20/2020, 06/11/2019, Additional history exists COVID-19 VACCINE ( season) 2025 06/19/2023, 08/03/2021, 10/05/2020, Additional history exists Adult Td,Tdap Booster 01/09/2027 01/09/2017 , 02/15/2011, 02/06/2008, Additional history exists HIB VACCINES Completed 05/05/1994, 08/28, 1993, Additional history exists IPV VACCINES Completed 01/27/1998, 08/29, 1993, Additional history exists MENINGOCOCCAL VACCINES (ACWY) [...] Procedure Name Priority Date/Time Associated Diagnosis Comments THYROID STIMULATING HORMONE (TSH) Routine 12/07/2023 1:17 PM EDT Down syndrome Other specified hypothyroidism from Last 3 Months or Most Recently Relevant to Health Maintenance Results * TSH (12/07/2023 1:17 PM EDT) TSH 4.38 0.40 - 5.00 uIU/mL [facility] 12/07/2023 1:17 PM EDT 12/07/2023 4:32 PM EDT us Rich Miles MD, MPH LAB BLOOD BKR ORDERA BLES Final Result [address] [address] from Last 3 Months or Most Recently Relevant to Health Maintenance Insurance [facility] MEDICARE PART A & B Member Subscriber Plan / Payer (Ef fective 2016-Present) Name:Ginny Perez Member ID:[id number] Relation to Subscriber:Self Name:Ginny Perez Subscriber ID:[id number] Payer ID:[id number] Group ID:Not on file Type:Medicare Address: [employer] [address] [place] MEDICARE PART A & B [facility] & B [place] PART [place] & B HEALTH MEDICARE PART A & B [place] PART A [place] B HEALTH MEDICARE PART A & B Member Subscriber Plan / Payer (Ef fective 2016-Present) Name:Ginny Perez Member ID:[id number] Relation to Subscriber:Self Name:Ginny Perez Subscriber ID:[id number] Payer ID:[id number] Group ID:Not on file Type:Medicare Address: [employer] [address] [place] MEDICARE PART A & B [facility] Advance Directives For more information, please contact: [phone] (9AM - 5PM Darlyn/[facility], Monday-Monday) Documents on File Type Date Recorded Patient Back Feeder Plywood Layup Line Expl anation Legal Guardianship 10/06/2020 10:05 AM Care Teams Nanofabrication Specialist Relationship Specialty Start Date End Date Therese Godoy MD [address] [place] [address] PCP - General Family Medicine 05/09/18 Additional Source Comments The information contained in this document represents components of the legal health record. It is not the complete legal health record.[facility]
== END 2025-07-07 13:04 | disposition home or self-care (01) ==
LOC: HO.NEURO 13:03
PROVIDERS: PCP Family Medicine; Visit Provider Psychiatry & Neurology Neurology
DX: G40.209 Localization-related (focal) (partial) symptomatic epilepsy and epileptic syndromes with complex partial seizures, not intractable, without status epilepticus (principal)
CPT/HCPCS: 95816

== ENCOUNTER → 2025-07-07 14:33 | Outpatient (BNV) | payer MEDICARE, MEDICAID, SELFPAY | PROVIDERS: PCP Family Medicine; Visit Provider Psychiatry & Neurology Neurology | DX: R94.01 Abnormal electroencephalogram [EEG] (principal) | CPT/HCPCS: 95816 ==

== ENCOUNTER 2025-07-22 11:36 | Outpatient (AMB) | payer MEDICARE, MEDICAID, SELFPAY ==
--- NOTE | 2025-07-22 11:39 | A.OFFVIS_ITS ---
Intake Visit Reasons: Results Allergies bacitracin Allergy (Unknown, Verified 09/25/24 22:22) Unknown penicillin V Allergy (Unknown, Verified 09/25/24 22:22) Unknown Penicillins (PENICILLINS) Allergy (Unknown, Verified 09/25/24 22:22) UNKNOWN Sulfa (Sulfonamide Antibiotics) (SULFA (SULFONAMIDE ANTIBIOTICS)) Allergy (Unkn own, Verified 09/25/24 22:22) UNKNOWN sulfacetamide Allergy (Unknown, Verified 09/25/24 22:22) Unknown adhesive Allergy (Unknown, Uncoded 09/25/24 22:22) Unknown Clindamycin HCl Allergy (Unknown, Uncoded 09/25/24 22:22) Unknown HPI Comments Details: 30 years old woman who probably suffering from complex partial seizure disorder. I have reviewed couple of videos shunt to me which provided evidence for symptoms of complex partial seizures. An EEG is ordered and I would consider treatment afterwards. Common sense measures were discussed in case it happens again. She is presenting for follow-up to discuss EEG results and recent behavioral changes. The patient has a known history of Down syndrome. A recent EEG confirmed a seizure disorder, which is common in individuals with Down syndrome. Recently, there have been behavioral changes, including being very tired, withdrawing from classes, and standing by the wall. The patient's mother reports a history of sleep apnea, which was identified on a prior sleep study showing apnea when the patient is on the patient's back, but not on the side. The patient also snores. The mother inquired about a surgical option for sleep apnea, but it was noted that the patient would not wear a CPAP mask. Past medical history is significant for fainting spells due to a sensitive vagal nerve, with one episode resulting in a clavicle fracture. The patient has a diagnosis of Graves' disease and takes thyroid medication. There was a past incident where the patient was confused due to being on the wrong thyroid medication. The risk of developing dementia is known to be high in individuals with Down syndrome. [facility] Medical History (Updated 07/22/25 @ 11:41 by Sly Juarez MD) Sleep apnea Down syndrome Absence seizure with automatisms Hypothyroidism Graves disease Hyperthyroidism Surgical History Hx of tonsillectomy Family History Mother No problems noted. Maternal Grandmother Goiter Sister Orlando's disease Social History Housing: Other Housing Other:: Resides at [facility] Do you presently have visiting nurse or other home services: Yes (School Nurse Donna [phone] Ext [phone]) Alcohol intake: never Patient Tobacco Use Status: Never used Tobacco Review of Systems Narrative - Constitutional: Reports fatigue. - Respiratory: Reports snoring. - Neurological: Reports a history of syncope. - Psychiatric/Behavioral: Reports getting anxious and asking repetitive questions when medical tests are discussed. - The patient's mother notes recent behavioral changes, including social withdrawal from classes. Physical Exam Neuro Other: Mental Status: She is alert and awake. Cranial Nerves: CN II: Visual clayton full to confrontation, visual acuity intact. CN III, IV, : Pupils equal, round, reactive to light and accommodation. Extraocular movements are normal. CN V: Facial sensation is normal. CN VII: Facial movements symmetrical. CN VIII: Hearing intact to bedside conversation is normal. CN IX, X: Palate elevates symmetrically. CN XI: Shoulder shrug and head turn symmetrical. CN XII: Tongue midline without atrophy or fasciculations. Extrapyramidal: Full facial expressions and blinking. No rigidity. Movements are appropriate with no tremor or abnormality. Speech: Normal; no dysarthria or tremor. Assessment & Plan Assessment & Plan (1) Complex partial seizure disorder: Comment: [place] [facility] [place]: Ramona swanson MRI brain at [facility] [place] Apr 2025: WNL Code(s): G40.209 - Localization-related (focal) (partial) symptomatic epilepsy and epileptic syndromes with complex partial seizures, not intractable, without status epilepticus Category: Medical (2) Down syndrome: Code(s): Q90.9 - Down syndrome, unspecified Category: Medical Plan I discussed with the patient's mother that the recent EEG confirmed a seizure disorder, which is frequently seen in individuals with Down syndrome. I explained that the patient's fatigue and behavioral changes could be manife stations of seizure activity. I recommended starting a common and safe antiseizure medication to treat the condition and see if symptoms improve. I advised her that some people feel dizzy initially but get used to it, and to contact us if the patient shows signs of anger or aggression, as we would need to change the medicine. We also discussed the history of sleep apnea. I advised against pursuing surgical intervention, as the patient would not use a CPAP, and the risks of surgery would likely outweigh the small potential benefit for this individual who cannot provide consent. I emphasized that sometimes doing less is a better approach. We agreed to a follow-up appointment in three months to monitor the patient's response to the new medication. Medications: New levetiracetam 250 mg PO BID 60 tabs 2RF Coding Level of Care Code Est Pt Level 3 (94750) Diagnoses Complex partial seizure disorder G40.209 Down syndrome Q90.9
--- OUTSIDE RECORDS SUMMARY | 2025-07-22 15:24 | XMS_ITS | Clinical Summary ---
Author Organization [facility] Address [address] [place] [address] Phone Care Team Providers Care Director Nursery School Name Role Phone Therese Godoy MD Primary Care Provider [phone] Allergies Active Allergy Reactions Criticality Noted Date [...] in 09/2020, started on Methimazole 5mg by faculty neuropsychologist Sensorineural hearing loss (SNHL) of both ears [...] Team Description 05/02/2025 3:45 PM EDT Telemedicine [place] [phone] Brisa Sadler MD Anxiety (Primary Dx); Down [...] Description 07/29/2025 7:00 PM EST Procedure visit [facility] Sleep Lab Home Sleep Apnea Testing Program [address]nd [place] [address] Lucio Ureña MD [address] [place] [address] [email or web address] 11/07/2025 3:45 PM EDT Telemedicine [facility] 1 [place] [address] Brisa Sadler MD [address] [place] [address] [email or web address] 01/22/2026 3:00 PM EDT Nutrition [facility] Medical Genetics [address] [place] [address], [address] [place] [address] Rich Miles MD, MPH [address] [place] [address] [email or web address] Simin Snyder LDN [address] [place] [address] [email or web address] 01/22/2026 4:00 PM EDT Office Visit [facility] Medical Genetics [address] [place] [address], [address] [place] [address] Rich Miles MD, MPH [address] [place] [address] [email or web address] 01/22/2026 4:00 PM EDT Social Work [facility] Social Service Department [address] [place] [address] Rich Miles MD, MPH [address] [place] [address] [email or web address] Keri Hatch [address] [place] [address] [email or web address] Health Maintenance Due Date Last Done Comments [...] EDT) TSH 4.38 0.40 - 5.00 uIU/mL [facility] 12/07/2023 1:17 PM EDT 12/07/2023 4:32 PM EDT us Rich Miles MD, MPH LAB BLOOD BKR ORDERA BLES Final Result [address] [address] from Last 3 Months or Most Recently Relevant to Health Maintenance Insurance MEDICARE PART A & B [facility] & [facility] MEDICARE PART A & B [place] & B [facility] & B Member Subscriber Plan / Payer ( fective 2016-Present) Name:Ginny Perez Member ID:[id number] Relation to Subscriber:Self Name:Ginny Perez Subscriber ID:[id number] Payer ID:[id number] Group ID:Not on file Type:Medicare Address: [facility] [address] [place] MEDICARE PART A & B HEALTH MEDICARE PART A & B HEALTH [place]ONY [place] [id number] MEDICARE PART A & B [facility] ANTHONY [place] [id number] Advance Directives For more information, please contact: [phone] (9AM - 5PM [facility], Monday-Monday) Documents on File Type Date Recorded Patient Dental Receptionist Expl anation Legal Guardianship 10/06/2020 10:05 AM Care Teams Director Nursery School Relationship Specialty Start Date End Date Therese Godoy MD [address] [place] [address] PCP - General Family Medicine 05/09/18 Additional Source Comments The information contained in this document represents components of the legal health record. It is not the complete legal health record.[facility]
--- OUTSIDE RECORDS SUMMARY | 2025-07-22 15:24 | XMS_ITS | Encounter Summary ---
Author Organization [employer] Address [address] [facility] 7t [place] [address] Care Team Providers Care Band Head Saw Operator Name Role Phone Therese Godoy MD Primary Care Provider [phone] Brisa Fox MD Primary Care Provider [phone] Reason for Visit * Reason Onset Date Comments Referral 12/27/2024 Encounter Details Date Type Department Care Team ([facility] st Contact Info) Description 12/27/2024 Telephone [facility] MEDICINE [address] [place], [place] [phone] Therese Godoy MD [address] [place], [place] [phone] Referral Social History Tobacco Use Types Packs/Day [...] order after a routine check up at [facility]. Any questions contact pt dad [phone] documented in this encounter Plan of Treatment Upcoming Encounters Date Type Department Care Team (Late st Contact Info) Description 08/11/2025 10:30 AM EST Office Visit [facility] CHC MED & PEDS [address] [place] [address] Brisa Fox MD [address] [place] [address] 08/15/2025 9:30 AM EST Office Visit [facility] ADULT DENTAL [address] [place] [address] Rachael Lara documented as of this encounter Visit Diagnoses Not on filedocumented in this encounter Care Teams Band Head Saw Operator Relationship Specialty Start Date End Date Therese Godoy MD [address] [place] [address] PCP - General Family Medicine 07/10/15 06/27/25 Brisa Fox MD [address] [place] [address] PCP - General Family Medicine 06/28/25 documented as of this encounter
--- OUTSIDE RECORDS SUMMARY | 2025-07-22 15:24 | XMS_ITS | Encounter Summary ---
Author Organization [employer] Address [address] [facility] 7t [place] [address] Care Team Providers Care Film Examiner Name Role Phone Therese Godoy MD Primary Care Provider [phone] Brisa Fox MD Primary Care Provider [phone] Reason for Visit * Reason Onset Date Comments Referral 09/14/2023 Encounter Details Date Type Department Care Team ([facility] st Contact Info) Description 09/14/2023 Telephone [facility] CHC MED & PEDS 505 [place], [place] [phone] Therese Godoy MD 505 [place] [address] Referral Social History Tobacco Use Types Packs/Day [...] 12:16 PM EST TC from sandip with [facility] requesting a referral to DATE: 09/19/23 TIME: 12pm Location: [address] [place] [address] Facility: [facility] Type of Specialist: Speech Any questions may contact sandip at [phone] ext [phone] documented in this encounter Plan of Treatment Upcoming Encounters Date Type Department Care Team (Late st Contact Info) Description 08/11/2025 10:30 AM EST Office Visit [facility] CHC MED & PEDS [address] [place] [address] Brisa Fox MD [address] [place] [address] 08/15/2025 9:30 AM EST Office Visit [facility] ADULT DENTAL [address] [place] [address] Rachael Lara documented as of this encounter Visit Diagnoses Not on filedocumented in this encounter Care Teams Film Examiner Relationship Specialty Start Date End Date Therese Godoy MD [address] [place] [address] PCP - General Family Medicine 07/10/15 06/27/25 Brisa Fox MD [address] [place] [address] PCP - General Family Medicine 06/28/25 documented as of this encounter
--- OUTSIDE RECORDS SUMMARY | 2025-07-22 15:24 | XMS_ITS | Encounter Summary ---
Author Organization [employer] Address [address] [facility] 7t [place] [address] Care Team Providers Care Property Officer Name Role Phone Therese Godoy MD Primary Care Provider [phone] Brisa Fox MD Primary Care Provider [phone] Encounter Details Date Type Department Care Team ([facility] st Contact Info) Description 09/25/2024 Telephone [facility] [address] [place], [place] [phone] Therese Godoy MD 505 [place] [address] Social History Tobacco Use Types Packs/Day Years [...] great deal of time explaining to this selling underwriter her frustrations with our healthcare system. She was sent the link to sign up for [employer] and advised this will allow results to [...] pt mother requesting to speak to manager of network Susannah. Mom would like to discuss health care concerns and possibly switching providers Contact pt mother An at [phone] documented in this encounter Plan of Treatment Upcoming Encounters Date Type Department Care Team ([facility] st Contact Info) Description 08/11/2025 10:30 AM EST Office Visit [facility] MED & PEDS [address] [place] [address] Brisa Fox MD [address] [place] [address] 08/15/2025 9:30 AM EST Office Visit [facility] ADULT DENTAL [address] [place] [address] Rachael Lara documented as of this encounter Visit Diagnoses Not on filedocumented in this encounter Care Teams Property Officer Relationship Specialty Start Date End Date Therese Godoy MD [address] [place] [address] PCP - General Family Medicine 07/10/15 06/27/25 Brisa Fox MD [address] [place] [address] PCP - General Family Medicine 06/28/25 documented as of this encounter
--- OUTSIDE RECORDS SUMMARY | 2025-07-22 15:24 | XMS_ITS | Encounter Summary ---
Author Organization [employer] Address [address] [facility] 7t [place] [address] Care Team Providers Care Case Work Aide Name Role Phone Therese Godoy MD Primary Care Provider [phone] Brisa Fox MD Primary Care Provider [phone] Reason for Visit * Reason Onset Date Comments clarification on script 01/02/2025 Encounter Details Date Type Department Care Team ([facility] st Contact Info) Description 01/02/2025 Telephone [facility] ADULT DENTAL [address] [place] [address] Zofia Ma DDS [address] [place] [address] clarification on script Social History Tobacco Use [...] Description 08/11/2025 10:30 AM EST Office Visit [facility] MED & PEDS [address] [place] [address] Brisa Fox MD [address] [place] [address] 08/15/2025 9:30 AM EST Office Visit [facility] ADULT DENTAL [address] [place] [address] Rachael Lara documented as of this encounter Visit Diagnoses Not on filedocumented in this encounter Care Teams Case Work Aide Relationship Specialty Start Date End Date Therese Godoy MD [address] [place] [address] PCP - General Family Medicine 07/10/15 06/27/25 Brisa Fox MD [address] [place] [address] PCP - General Family Medicine 06/28/25 documented as of this encounter
--- OUTSIDE RECORDS SUMMARY | 2025-07-22 15:24 | XMS_ITS | Clinical Summary ---
Author Organization [employer] Address [address] [facility] 7t [place] [address] Care Team Providers Care Evidence Technician Name Role Phone Brisa Fox MD Primary Care Provider [phone] Allergies Active Allergy Reactions Criticality Noted Date Comments Bacitracin 10/26/2022 Clindamycin 10/26/2022 Penicillins 08/24/2022 Sulfa Antibiotics 10/26/2022 Sulfamethoxazole 10/26/2022 Trimethoprim 10/26/2022 Medications Carboxymethylcel moses-Glycerin (Refresh Relieva) 0.5-0.9 % solutionIndicati ons:Redness of left eye 1 drop in each eye 3 times a day. 10 mL 3 Active Additional Information Patient not taking.Reported on 11/08/2023 tacrolimus (Protopic) 0.1 % ointment 3 Active nystatin (Mycostatin) 538581 UNIT/GM powder Apply topically every 12 (twelve) hours. Active mupirocin (Bactroban) 2 % ointment 2 Active mineral oil external liquid 8 gtt every evening in both ears for cerumen impaction Active ketoconazole (NIZOral) 2 % shampoo 3 Active [place]-Smoothe/FS Scalp 0.01 % scalp oil 3 Active betamethasone dipropionate (Diprolene) 0.05 % ointment 3 Active busPIRone (Buspar) 7.5 MG tablet Take by mouth 2 times daily. Active psyllium (Metamucil) 0.36 g capsule Take 6 capsules by mouth Once per day. Active LORazepam (Ativan) 0.5 MG tablet Take 1 tablet (0.5 mg) by mouth 1 (one) time for 1 dose. 1 tablet 5 Active Pediatric Multiple Vitamins (Childrens Chew Multivitamin) chewable tabletIndication s:Macrocytosis without anemia Chew 1 tablet Once per day. 30 tablet 10 5 Active levothyroxine (Synthroid, Levoxyl) 25 MCG tabletIndication s:Hyperthyroidis m Take 1 tablet (25 mcg) by mouth before breakfast. 90 tablet 3 5 06/10/20 26 Active fluticasone (Flonase) 50 MCG/ACT nasal sprayIndications :Left ear pain Administer 1 spray into each nostril Once per day. 16 g 11 5 Active cholecalciferol (Vitamin D-3) 25 MCG (1000 UT) capsuleIndicatio ns:Macrocytosis without anemia TAKE 1 CAPSULE BY MOUTH EVERY DAY 30 capsule 11 5 Active Active Problems Problem Noted Date Diagnosed Date Left ear pain 11/01/2024 Acute otitis externa of left ear 11/01/2024 Assessment & Plan (11/01/2024 4:21 PM EST): Rx as written below Return to clinic for failure to improve Paperwork completed Hold mineral oil drops while topical abx are precribed Hyperthyroidism 11/13/2020 Overview (10/27/2022): TSH 0.05 in 09/2020, started on Methimazole 5mg by caretaker resort Down syndrome 04/29/2014 Overview (10/27/2022): Down syndrome Encounters Date Type Department Care Team Description 06/26/2025 Telephone [facility] MED [facility] PEDS [address] [place], [place] [phone] Therese Godoy MD 06/23/2025 Orders Only [facility] [address] [place] [address] Therese Godoy MD Down syndrome (Primary Dx) 06/18/2025 Telephone [facility] [address] [place] [address] [phone] Therese Godoy MD Call Back Request 06/10/2025 Telephone [facility] [address] [place], [place] [phone] Therese Godoy MD Referral 06/10/2025 Refill [facility] MED [facility] PEDS [address] [place] [address] Therese Godoy MD Macrocytosis without anemia; Left ear pain; Hyperthyroidism 05/02/2025 9:15 AM EDT Office Visit [facility] MED [facility] PEDS [address] [place] [address] Therese Godoy MD Absence seizure with automatisms (CMS/HCC) (Primary Dx); Gait disturbance 05/02/2025 Travel 05/01/2025 Telephone [facility] PED[facility] [address] [place] [address] Therese Godoy MD Chart prep from Last [...] Upcoming Encounters Date Type Department Care Team ([facility] st Contact Info) Description 08/11/2025 10:30 AM EST Office Visit [facility] MED [facility] PEDS [address] [place], [place] [phone] Brisa Fox MD [address] [place], [place] [phone] 08/15/2025 9:30 AM EST Office Visit [facility] ADULT DENTAL [address] [place] [address] Rachael Lara Health Maintenance Due Date Last Done Comments Dental X-Ray: [employer]ings 1993 Depression Screening 1993 HIV Screening 1993 Family Planning (PISQ) 01/16/2008 Hepatitis C Screening 2011 Pap Smear 2014 HPV/Cotest 2023 COVID-19 Vaccine ( season) 2025 06/01/2024, 06/26/2023, 07/19/2022, Additional history [...] Recently Relevant to Health Maintenance Insurance MEDICARE [place] [facility] MEDICAID STAND ADULT Care Teams Evidence Technician Relationship Specialty Start Date End Date Brisa Fox MD [address] [place] [address] PCP - General Family Medicine 06/28/25
--- OUTSIDE RECORDS SUMMARY | 2025-07-22 15:24 | XMS_ITS | Encounter Summary ---
Author Organization [employer] Address [address] [facility] 7 [place] [address] Care Team Providers Care Union Laborer Name Role Phone Therese Godoy MD Primary Care Provider [phone] Brisa Fox MD Primary Care Provider [phone] Encounter Details Date Type Department Care Team (Latest Contact Info) Description 09/05/2018 Abstract [facility] CONVERSIONS Dental, Provider, DDS Social History [...] Description 08/11/2025 10:30 AM EST Office Visit [facility] MED & PEDS [address] [place] [address] Brisa Fox MD [address] [place] [address] 08/15/2025 9:30 AM EST Office Visit [facility] ADULT DENTAL [address] [place], [place] [phone] Rachael Lara documented as of this encounter Visit Diagnoses Not on filedocumented in this encounter Care Teams Union Laborer Relationship Specialty Start Date End Date Therese Godoy MD [address] [place] [address] PCP - General Family Medicine 07/10/15 06/27/25 Brisa Fox MD [address] [place] [address] PCP - General Family Medicine 06/28/25 documented as of this encounter
--- OUTSIDE RECORDS SUMMARY | 2025-07-22 15:24 | XMS_ITS | Encounter Summary ---
Author Organization [employer] Address [address] [facility] 7t [place] [address] Care Team Providers Care Elementary School Music Teacher Name Role Phone Therese Godoy MD Primary Care Provider [phone] Brisa Fox MD Primary Care Provider [phone] Reason for Visit * Reason Onset Date Comments Dr. Llanes discontinue medication 01/03/2025 Encounter Details Date Type Department Care Team ([facility] st Contact Info) Description 01/03/2025 Telephone [facility] ADULT DENTAL [address] [place], [place] [phone] Zofia Ma, VENESSA [address] [place], [place] [phone] Dr. Llanes discontinue medication Social History Tobacco [...] - 01/03/2025 3:27 PM EDT Winsome from [employer] is checking if medication can be discontinued du topatient non cooperative with getting mouthwash into mouth. Needs verification that it can be discontinued. Please call Winsome to verify at [phone] ext [phone] * Telephone Encounter - Jean [...] Description 08/11/2025 10:30 AM EST Office Visit [facility] MED & PEDS [address] [place] [address] Brisa Fox MD [address] [place] [address] 08/15/2025 9:30 AM EST Office Visit [facility] ADULT DENTAL [address] [place] [address] Rachael Lara documented as of this encounter Visit Diagnoses Not on filedocumented in this encounter Care Teams Elementary School Music Teacher Relationship Specialty Start Date End Date Therese Godoy MD [address] [place] [address] PCP - General Family Medicine 07/10/15 06/27/25 Brisa Fox MD [address] [place] [address] [place] [address] PCP - General Family Medicine 06/28/25 documented as of this encounter
--- OUTSIDE RECORDS SUMMARY | 2025-07-22 15:24 | XMS_ITS | Encounter Summary ---
Author Organization [employer] Address [address] [facility] 7t [place] [address] Care Team Providers Care Welfare Investigator Name Role Phone Therese Godoy MD Primary Care Provider [phone] Brisa Fox MD Primary Care Provider [phone] Encounter Details Date Type Department Care Team ([facility] st Contact Info) Description 01/11/2024 Abstract [facility] CH[facility] MED & PEDS [address] [place] [address] Susannah Vargas, RN [address] [place] [address] Social History Tobacco Use Types Packs/Day Years [...] Description 08/11/2025 10:30 AM EST Office Visit [facility] CH[facility] MED & PEDS [address] [place] [address] Brisa Fox MD [address] [place] [address] 08/15/2025 9:30 AM EST Office Visit [facility] ADULT DENTAL [address] [place] [address] Rachael Lara documented as of this encounter Visit Diagnoses Not on filedocumented in this encounter Care Teams Welfare Investigator Relationship Specialty Start Date End Date Therese Godoy MD [address] [place] [address] PCP - General Family Medicine 07/10/15 06/27/25 Brisa Fox MD [address] [place] [address] PCP - General Family Medicine 06/28/25 documented as of this encounter
--- OUTSIDE RECORDS SUMMARY | 2025-07-22 15:24 | XMS_ITS | Encounter Summary ---
Author Organization [employer] Address [address] [facility] 7t [place] [address] Care Team Providers Care Enrollment Management Vice President Name Role Phone Therese Godoy MD Primary Care Provider [phone] Brisa Fox MD Primary Care Provider Reason for Visit * Reason Onset Date Comments Referral 06/10/2025 Encounter Details Date Type Department Care Team ([facility] st Contact Info) Description 06/10/2025 Telephone [facility] MEDICINE [address] [place] [address] Therese Godoy MD [address] [place], [place] [phone] Referral Social History Tobacco Use Types Packs/Day [...] Sally stated pt need new orthotics Address: [address] [place] [address] Facility Name: [facility] Phone # : Contact Sally at [phone] Ext. [phone] documented in this encounter Plan of Treatment Upcoming Encounters Date Type Department Care Team ([facility] st Contact Info) Description 08/11/2025 10:30 AM EST Office Visit [facility] MED & PEDS [address] [place] [address] Brisa Fox MD [address] [place] [address] 08/15/2025 9:30 AM EST Office Visit [facility] ADULT DENTAL [address] [place] [address] Rachael Lara documented as of this encounter Visit Diagnoses Not on filedocumented in this encounter Care Teams Enrollment Management Vice President Relationship Specialty Start Date End Date Therese Godoy MD [address] [place] [address] PCP - General Family Medicine 07/10/15 06/27/25 Brisa Fox MD [address] [place] [address] PCP - General Family Medicine 06/28/25 documented as of this encounter
--- OUTSIDE RECORDS SUMMARY | 2025-07-22 15:24 | XMS_ITS | Encounter Summary ---
Author Organization [employer] Address [address] [facility] 7t [place] [address] Care Team Providers Care Electronic Warfare Officer Name Role Phone Therese Godoy MD Primary Care Provider [phone] Brisa Fox MD Primary Care Provider [phone] Encounter Details Date Type Department Care Team ([facility] st Contact Info) Description 08/09/2023 Orders Only [facility] CH[facility] MED & PEDS [address] [place], [place] [phone] Rocky Conte MD [address] [place] [address] Macrocytosis without anemia (Primary Dx) Social History [...] Description 08/11/2025 10:30 AM EST Office Visit [facility] CHC MED & PEDS [address] [place] [address] Brisa Fox MD [address] [place] [address] 08/15/2025 9:30 AM EST Office Visit [facility] ADULT DENTAL [address] [place] [address] Rachael Lara documented as of this encounter Visit Diagnoses Diagnosis Macrocytosis without anemia- Primary Other specified diseases of blood and blood-forming organs documented in this encounter Care Teams Electronic Warfare Officer Relationship Specialty Start Date End Date Therese Godoy MD [address] [place] [address] PCP - General Family Medicine 07/10/15 06/27/25 Brisa Fox MD [address] [place] [address] PCP - General Family Medicine 06/28/25 documented as of this encounter
== END 2025-07-22 12:01 | disposition home or self-care (01) ==
LOC: HO.HSM 11:37
PROVIDERS: PCP Family Medicine; Visit Provider Psychiatry & Neurology Neurology
DX: G40.209 Localization-related (focal) (partial) symptomatic epilepsy and epileptic syndromes with complex partial seizures, not intractable, without status epilepticus (principal); Q90.9 Down syndrome, unspecified
CPT/HCPCS: 99213

== ENCOUNTER → 2025-07-22 11:36 | Outpatient (BNVA) | payer MEDICARE, MEDICAID, SELFPAY | PROVIDERS: PCP Family Medicine; Visit Provider Psychiatry & Neurology Neurology | DX: G40.209 Localization-related (focal) (partial) symptomatic epilepsy and epileptic syndromes with complex partial seizures, not intractable, without status epilepticus (principal); Q90.9 Down syndrome, unspecified | CPT/HCPCS: 99212 ==